=== PATIENT | female | born 1960 | race Caucasian/White ===

== ENCOUNTER 2019-06-01 15:34 | Outpatient (CLI) | payer OTHER, SELFPAY ==
--- NOTE | 2019-06-01 15:37 | ECG_ITS ---
Measurements Intervals [place] Rate: 70 P: 15 IN: 167 QRS: -34 QRSD: 93 T: 40 QT: 382 QTc: 415 Interpretive Statements SINUS RHYTHM LEFT AXIS DEVIATION LOW QRS VOLTAGE IN PRECORDIAL LEADS POOR R WAVE PROGRESSION, CONSDIER ANTERIOR INFARCT BASELINE ARTIFACT- I, II, III, AVR, AVL, AVF ABNORMAL ECG Electronically Signed On 06-01-2019 16:53:33 SHIP SURVEYOR by Isaac Mcintosh D.O.
== END 2019-06-01 15:35 | disposition home or self-care (01) ==
LOC: ANHSURGERY 15:37
PROVIDERS: PCP Physician Assistant; Visit Provider Podiatrist Foot & Ankle Surgery
DX: I10 Essential (primary) hypertension (principal)
CPT/HCPCS: 93005

== ENCOUNTER 2019-06-22 00:50 | Day surgery (SDC) | payer OTHER, SELFPAY ==
[2019-05-31 12:56] VITALS: BMI 41.9
[2019-06-22] VITALS (7 sets, daily range): BP systolic 109–137; BP diastolic 58–76; PULSE 55–73; RESP 12–17; TEMP 36.2; O2SAT 92–97
--- NOTE | ~2019-06-22 | XR_ITS ---
EXAMINATION: XR surgery orthopedic DATE: 06/22/2019 10:25 INDICATION: Left foot arthrodesis. TECHNIQUE: 2 intraoperative spot fluoroscopic views of the left foot were obtained. COMPARISON: None. FINDINGS: Bone alignment is normal. No fracture. There are changes of arthrodesis procedure of first metatarsophalangeal joint with dorsal plate and screws. There are changes of arthrodesis procedure of second proximal interphalangeal joint with single screw. No fracture. IMPRESSION: 1. Arthrodesis procedures of first metatarsophalangeal joint and second proximal interphalangeal join t. Reviewed, dictated and finalized at location A. T MAKER MACHINE IMPRESSION: 1. Arthrodesis procedures of first metatarsophalangeal joint and second proxima l interphalangeal joint.
--- NOTE | 2019-06-22 07:21 | WPDHPUPDATE1 ---
History and Physical Update Update Date/Time: 06/22/19 07:21 History and Physical has been reviewed, including an updated exam of the patient. There are NO changes in the patient's condition. Risks, benefits, and alternatives have been discussed and questions answered. Patient agrees to proceed with procedure.
[2019-06-22] MEDS: LACTATED RINGERS 1,000 ML 30 ML IV CONT ×2 (07:30→10:28)
--- NOTE | 2019-06-22 08:09 | WPDANESEPPF ---
Anes - Initial Pre Proc Eval Procedure: Operation Date: 06/22/19 09:00 Proposed Procedures p Arthrodesis First Metatarsal Phalangeal Joint Left Foot - Alfonso Durham JR, MD s Hammer Toe Repair Second Digit Left Foot - Alfonso Durham JR, MD Date/Time: 06/22/19 08:09 Surgeon: Alfonso Durham JR, MD Pre Op Diagnosis: bunion left foot, hammer toe 2nd left foot Patient Data Age: 59 Gender: F Height: 1.68 m Weight: 118.6 kg Last Vital Signs Temp 36.2 C L 06/22/19 07:41 Pulse 58 L 06/22/19 07:41 Resp 16 06/22/19 07:41 BP 135/70 06/22/19 07:41 Pulse Ox 97 06/22/19 07:41 Allergies Allergy/AdvReac Type Severity Reaction Status Date / Time adhesive tape Allergy Severe WINTER SKIN Verified 06/22/19 07:15 Home Medications Medication Instructions Recorded Confirmed Type cranberry fruit concentrate [Azo 250 mg PO DAILY 05/31/19 06/22/19 History Cranberry] diclofenac sodium 75 mg PO DAILY 05/31/19 06/22/19 History hydrochlorothiazide 25 mg PO DAILY 05/31/19 06/22/19 History losartan 100 mg PO DAILY 05/31/19 06/22/19 History multivitamin 1 tablet PO DAILY 05/31/19 06/22/19 History albuterol sulfate [ProAir HFA] 2 puff INHALATION Q4-6H PRN 06/18/19 06/22/19 History carvedilol 12.5 mg PO BID 06/18/19 06/22/19 History glycopyrrolate-formoterol [Bevespi 2 puff INHALATION BID 06/18/19 06/22/19 History Aerosphere] rosuvastatin 40 mg PO DAILY 06/18/19 06/22/19 History cholecalciferol (vitamin D3) 2,000 unit PO DAILY 06/22/19 06/22/19 History [Vitamin D3] ECG: Date of Service: 06/01/19 Procedure(s): CA 12 lead EKG Accession Number(s): [id number] cc: ~ Measurements Intervals [place] Rate: 70 P: 15 [place]: 167 QRS: -34 QRSD: 93 T: 40 QT: 382 QTc: 415 Interpretive Statements SINUS RHYTHM LEFT AXIS DEVIATION LOW QRS VOLTAGE IN PRECORDIAL LEADS POOR R WAVE PROGRESSION, CONSDIER ANTERIOR INFARCT BASELINE ARTIFACT- I, II, III, AVR, AVL, AVF ABNORMAL ECG Electronically Signed On 06-01-2019 16:53:33 POULTRY HATCHERY SUPERVISOR by Isaac Mcintosh D.O. Dictated By: Isaac Mcintosh DO 06/01/19 1622 Patient hx anesthesia problems: other (REPORTS WAKING DURING SURGERY FEELING IF SHE WAS DROWNING) Family hx anesthesia problems: none [facility] Past Medical History Medical History (Updated 06/22/19 @ 08:13 by David Pena MD) Arthritis COPD (chronic obstructive pulmonary disease) Emphysema of lung Endometriosis HTN (hypertension) Hypercholesterolemia Morbid obesity with BMI of 40.0-44.9, adult Anes - Eval Final PreProcedure Day of Procedure 06/22/19 08:09 Patient weight: morbidly obese Heart: regular rate and rhythm Lungs: clear to auscultation and normal air movement Airway: Mallampati scale class II Neurological: alert and oriented Last oral intake: >/= 8 hours ASA classification: III Emergent: no Anesthetic plan: proceed Anesthesia type and monitoring: general LMA Informed Consent: The patient's anesthetic plan and its attendant risks and benefits were discussed with the patient/family/POA. Questions were solicited and answers provided to the satisfaction of the patient/family/POA.
[2019-06-22] MEDS: ceFAZolin 2 GM/D5W 50 ML 2 GM/50 ML BAG IVPB (08:36)
--- NOTE | 2019-06-22 08:38 | WPDANESPNB ---
Anes - Peripheral Nerve Block Date/Time: 06/22/19 08:38 I have discussed with the patient/family/POA the placement of a peripheral nerve block for post-operative pain management, including associated risks, benefits, complications, and side effects. Alternative methods of post-operative analgesia were detailed. Questions were solicited and answers provided to the satisfaction of the patient/family/POA. Time-Out: A pre-procedural Time-Out was completed immediately before starting the procedure and confirmed: Patient Identification, Site, Procedure, Patient Position and the Availability of Requisite Equipment. Clinical Indications: Acute post-operative pain management requested by the operative surgeon. Nerve Block Insertion Note Anes-nerve block: posterior fossa sciatic (20cc) left and adductor canal (10cc) left Patient position: supine Skin prep: chlorhexidine Needle: 22 gauge, stimulating, insulated echogenic needle. Needle length: 80 mm Technique: ultrasound (in plane) Injectate: bupivacaine 0.5% with epi 5 mcg/ml (20cc) Observations: tolerated well Complications: none Procedure start time:: 830 Procedure end time:: 835
--- NOTE | 2019-06-22 10:39 | PM.OP ---
Procedure Note - Brief Procedure Note - Brief Date of procedure: 06/22/19 Pre-op diagnosis: bunion left foot, hammer toe 2nd left foot Post-op diagnosis: same Procedure performed: 1. Arthrodesis of the first metatarsal phalangeal joint left foot 2. Hammertoe repair 2nd digit left foot Anesthesia: GLMA Surgeon: Alfonso Durham JR, DPM Estimated blood loss (mL): 1 Complications: No immediate complications Condition: stable Disposition: same day
--- NOTE | 2019-06-22 17:28 | OP_ITS ---
DATE OF PROCEDURE: 06/22/2019 PREOPERATIVE DIAGNOSES: 1. Arthritic bunion deformity, left foot. 2. Painful hammertoe deformity, left second digit. POSTOPERATIVE DIAGNOSES: 1. Arthritic bunion deformity, left foot. 2. Painful hammertoe deformity, left second digit. PROCEDURE: 1. Arthrodesis of the 1st metatarsophalangeal joint of the left foot. 2. Hammertoe repair, 2nd digit, left foot. 3. Extensor tendon release, 2nd digit, left foot. PATHOLOGY: None. ANESTHESIA: General with previous popliteal fossa block. HEMOSTASIS: Pneumatic ankle tourniquet at 250 mmHg. ESTIMATED BLOOD LOSS: Minimal. MATERIALS USED: 1 [employer] Crosscheck plate with four 2.7 mm with 4 [employer] Crosscheck plate screws, 3 of them were 2.7 mm and one was a 3.5 mm nonlocking locking, one lag screw, 3.5 mm was also used along with a medium [employer] hammertoe phalanx system, 3-0 PDS, 4-0 Vicryl and 4-0 Monocryl. INJECTABLES: None. COMPLICATIONS: None. PROCEDURE IN DETAIL: Under mild sedation, the patient was brought to the operating room, placed on the operating table in the supine position. A pneumatic ankle tourniquet was placed about the patient's left ankle. Following general anesthesia and a previous popliteal fossa block, the left foot and ankle were then scrubbed, prepped, and draped in the usual aseptic manner. Next, an Esmarch bandage was used to examine the patient's left foot and the pneumatic ankle tourniquet was then inflated. Surgery began in the following manner. Attention was directed to the dorsal aspect of 1st metatarsophalangeal joint of the left foot just medial to the extensor hallucis longus tendon. The incision was approximately 5 cm starting just proximal to the interphalangeal joint and extending to the central shaft of the 1st metatarsal. Incision was continued deep down through subcutaneous tissues using sharp and blunt dissection. All bleeders were ligated and cauterized as necessary. At this point, a full length periosteal and capsular incision was made over the 1st metatarsophalangeal joint of the left foot. The periosteum and capsular structures were then freed of their osseous attachments at the base of the proximal phalanx as well as the head of the 1st metatarsal. At this point, there was significant denudation noted to the cartilage to the 1st metatarsal head, especially centrally and medially. Furthermore, there were significant joint space narrowing to the base of the proximal phalanx with sclerosis noted with hypertrophy at the base of the proximal phalanx noted. Furthermore, there was a large medial eminence that was resected. Those resected utilizing a sagittal bone saw. Next, utilizing the [employer] reamer system, the head of the 1st metatarsal head was denuded of cartilage down to the level of the subchondral bone. Next, the [employer] reamer system was used to denude the cartilage from the base of the proximal phalanx. Next, 2.0 mm drill bit was used to fenestrate the head of the 1st metatarsal base of the proximal phalanx in order to promote fusion across the 1st metatarsophalangeal joint. Next, a [employer] crosscheck plate was placed across the dorsum of the 1st metatarsophalangeal joint. AP was used to make sure that the plate was appropriately positioned. A large middle lid was used to make sure that the hallux was in a rectus position in the sagittal plane, and then it was purchasing the ground adequately. Temporary fixation was maintained with K-wire fixation across the 1st metatarsophalangeal joint. Once temporary fixation was achieved, the 2 distal screw holes were drilled from dorsal to plantar and two 2.7 mm [employer] Crosscheck plate screws that were locking were driven from dorsal to plantar. Nex
== END 2019-06-22 12:15 | disposition home or self-care (01) ==
PROVIDERS: PCP Physician Assistant; Visit Provider Podiatrist Foot & Ankle Surgery
PROC: (CPT 28750; principal; 2019-06-22 09:00)
PROC: (CPT 28750; 2019-06-22 09:00)
DX: M21.612 Bunion of left foot (principal); M13.872 Other specified arthritis, left ankle and foot; M20.42 Other hammer toe(s) (acquired), left foot; G89.18 Other acute postprocedural pain; J43.9 Emphysema, unspecified; I10 Essential (primary) hypertension; E78.00 Pure hypercholesterolemia, unspecified; E66.01 Morbid (severe) obesity due to excess calories; Z68.41 Body mass index [BMI] 40.0-44.9, adult
CPT/HCPCS: 28750; 28285; 64445; 64447; A9270; C1713; J0690; J1100; J2250; J2405; J2704; J3010; J7120

== ENCOUNTER 2020-06-06 15:00 | Outpatient (CLI) | payer BC, OTHER, SELFPAY ==
--- NOTE | ~2020-06-06 | MM_ITS ---
EXAMINATION: MM screening [facility] BI w gianni HISTORY: Screening mammogram TECHNIQUE: Craniocaudal and mediolateral oblique 3-D tomosynthesis images were obtained and synthetic 2-D images were generated. CAD analysis was submitted and interpreted. COMPARISON: 03/03/2016, 11/02/2014, 05/11/2013 bilateral digital screening mammogram examinations BREAST PARENCHYMAL COMPOSITION: There are scattered areas of fibroglandular density. FINDINGS: There are scattered benign calcifications. Stable low-density circumscribed 1 cm opacity noted anterolaterally in the right breast on cc view. There is no evidence of suspicious mass, calcification, or architectural distortion to suggest malign callie in either breast. There has been no suspicious interval change. IMPRESSION: 1. No mammographic evidence of malignancy. 2. Recommend routine screening mammography in one year. BI-RADS Category 2: Benign finding(s). Reviewed, dictated and finalized at location A. L NUMERICAL CONTROL PROGRAMMER
== END 2020-06-06 15:01 | disposition home or self-care (01) ==
LOC: ANHIMG 15:05
PROVIDERS: PCP Physician Assistant; Visit Provider Physician Assistant
DX: Z12.31 Encounter for screening mammogram for malignant neoplasm of breast (principal)
CPT/HCPCS: 77063; 77067

== ENCOUNTER 2021-07-08 09:40 | Outpatient (CLI) | payer BC, OTHER, SELFPAY ==
--- NOTE | ~2021-07-08 | MM_ITS ---
EXAMINATION: MM screening [facility] BI w gianni HISTORY: Screening mammogram TECHNIQUE: Craniocaudal and mediolateral oblique 3-D tomosynthesis images were obtained and synthetic 2-D images were generated. CAD analysis was submitted and interpreted. COMPARISON: 06/06/2020, 03/03/2016, 11/02/2014 BREAST PARENCHYMAL COMPOSITION: There are scattered areas of fibroglandular density. FINDINGS: There is no suspicious mass, calcification, or architectural distortion to suggest malignan cy in either breast. There has been no suspicious interval change. IMPRESSION: 1. No mammographic evidence of malignancy. 2. Recommend routine screening mammography in one year. BI-RADS Category 1: Negative Reviewed, dictated and finalized at location A.
== END 2021-07-08 09:41 | disposition home or self-care (01) ==
LOC: ANHIMG 09:42
PROVIDERS: PCP Physician Assistant; Visit Provider Physician Assistant
DX: Z12.31 Encounter for screening mammogram for malignant neoplasm of breast (principal)
CPT/HCPCS: 77063; 77067

== ENCOUNTER 2022-05-28 13:23 | Emergency (ER) | payer OTHER, SELFPAY ==
--- NOTE | ~2022-05-28 | XR_ITS ---
EXAMINATION: XR foot RT 2V DATE: 05/28/2022 15:33 INDICATION: Right foot foreign body. TECHNIQUE: 2 views of right foot were obtained. COMPARISON: None. FINDINGS: There are changes of bunionectomy with screw in first metatarsal. There are changes of rese ction of head of fifth proximal phalanx and possibly fifth middle phalanx. There is mild osteoarthrit is of some of the interphalangeal joints. There is an enthesophyte at plantar aspect of calcaneal tub erosity. IMPRESSION: 1. Bunionectomy with screw fixation of first metatarsal. 2. Mild polyarticular osteoarthritis. Reviewed, dictated and finalized at location A. VISION CABLE INSTALLER
[2022-05-28 13:26] VITALS: BP 208/75; PULSE 62; RESP 18; TEMP 36.7; O2SAT 98
--- NOTE | 2022-05-28 15:21 | ED.WOUNDLAC ---
HPI - Wound/Laceration General Chief Complaint: Wound/Laceration Stated Complaint: toe laceration Time Seen by Provider: 05/28/22 15:11 History of Present Illness HPI narrative: 62-year-old female reports for left great toe laceration that occurred 19 hours ago. Patient states she was opening her fridge and the shelf fell off landing on her foot along with all of the jars on the shelf. Patient takes a daily baby aspirin but held her dose today to stop the bleeding. She had her daughter closed the toe with Steri-Strips which controlled the bleeding. She thinks her tetanus was in the past 10 years but she is unsure. She is ambulating on her foot. Denies pain elsewhere on her foot. Related Data Home Medications Medication Instructions Recorded Confirmed cranberry fruit concentrate 250 mg 250 mg PO DAILY 05/31/19 06/22/19 chewable tablet (Azo Cranberry) diclofenac sodium 75 mg 75 mg PO DAILY 05/31/19 06/22/19 tablet,delayed release hydrochlorothiazide 25 mg tablet 25 mg PO DAILY 05/31/19 06/22/19 losartan 100 mg tablet 100 mg PO DAILY 05/31/19 06/22/19 multivitamin 1 tablet PO DAILY 05/31/19 06/22/19 albuterol sulfate 90 mcg/actuation 2 puff inhalation Q4-6H PRN 06/18/19 06/22/19 aerosol inhaler (ProAir HFA) Shortness Of Breath carvedilol 12.5 mg tablet 12.5 mg PO BID 06/18/19 06/22/19 glycopyrrolate 9 mcg-formoterol 2 puff inhalation BID 06/18/19 06/22/19 4.8 mcg HFA aerosol inhaler (Bevespi Aerosphere) rosuvastatin 40 mg tablet 40 mg PO DAILY 06/18/19 06/22/19 cholecalciferol (vitamin D3) 50 2,000 unit PO DAILY 06/22/19 06/22/19 mcg (2,000 unit) capsule (Vitamin D3) Allergies Allergy/AdvReac Type Severity Reaction Status Date / Time adhesive tape Allergy Severe WINTER SKIN Verified 06/22/19 07:15 Review of Systems Review of Systems: CONSTITUTIONAL: Denies fever, chills EYES: Denies visual changes, redness, or discharge. ENT: Denies rhinorrhea, congestion, sore throat, or otalgia. CARDIOVASCULAR: Denies chest pain, palpitations, or edema. RESPIRATORY: Denies cough or dyspnea. GASTROINTESTINAL: Denies abdominal pain, nausea, vomiting, or diarrhea. GENITOURINARY: Denies dysuria or hematuria. SKIN: See HPI MUSCULOSKELETAL: Denies back pain, joint pain, or myalgia. NEUROLOGIC: Denies headache, numbness, dizziness, or weakness. PSYCHIATRIC: Denies anxiety or depression. [facility] Past Medical History Medical History Arthritis COPD (chronic obstructive pulmonary disease) Emphysema of lung Endometriosis HTN (hypertension) Hypercholesterolemia Morbid obesity with BMI of 40.0-44.9, adult Exam Narrative: GENERAL: Well-appearing, well-nourished, and in no acute distress. HEAD: Normocephalic, atraumatic. EYES: PERRLA and EOMI. ENT: Nares clear, no rhinorrhea or epistaxis. NECK: Supple. No adenopathy or masses. CHEST: Clear to auscultation. No respiratory distress. No wheezes rales or rhonchi HEART: Regular rate and rhythm. No murmur heard. Normal peripheral pulses. ABDOMEN: Soft, nontender, nondistended, normal active bowel sounds. EXTREMITIES: Normal range of motion. No edema. SKIN: 2 cm laceration on the dorsum of the left great toe, does not extend into the proximal nail fold. No purulent drainage. No fluctuance or induration. DP pulses 2+. Cap refill less than 2 seconds. Tenderness overlying the left great toe. No other tenderness to palpation of the left foot. NEURO: No focal deficits. Alert and oriented x3. PSYCH: Normal mood and affect. Course Vital Signs Vital signs: Vital Signs Temperature 98.1 F 05/28/22 13:26 Pulse Rate 62 05/28/22 13:26 Respiratory Rate 18 05/28/22 13:26 Blood Pressure 208/75 H 05/28/22 13:26 Pulse Oximetry 98 05/28/22 13:26 Oxygen Delivery Room Air 05/28/22 13:26 Temperature 98.1 F 05/28/22 13:26 Pulse Rate 62 05/28/22 13:26 Respiratory Rate 18 05/28/22 13:26 Blood Pressu
[2022-05-28] MEDS: TETANUS,DIPHTHERIA,AC PERTUSSIS ADULT (0.5 ML) BOOSTRIX IM (15:58)
[2022-05-28] MEDS: LIDOCAINE HCL 1% LOCAL INJ 20 ML VIAL (16:29)
[2022-05-28 17:26] VITALS: BP 155/77
== END 2022-05-28 17:47 | disposition home or self-care (01) ==
PROVIDERS: Emergency Provider Physician Assistant; PCP Physician Assistant
DX: S91.111A Laceration without foreign body of right great toe without damage to nail, initial encounter (principal); Z23 Encounter for immunization; J43.9 Emphysema, unspecified; I10 Essential (primary) hypertension; N80.9 Endometriosis, unspecified; E78.00 Pure hypercholesterolemia, unspecified; M19.071 Primary osteoarthritis, right ankle and foot; E66.01 Morbid (severe) obesity due to excess calories; Z68.38 Body mass index [BMI] 38.0-38.9, adult; W20.8XXA Other cause of strike by thrown, projected or falling object, initial encounter
CPT/HCPCS: 12001; 73620; 90471; 90715; 99283

== ENCOUNTER 2022-06-12 08:43 | Inpatient (IN) | payer OTHER, SELFPAY ==
[2022-06-12] VITALS (15 sets, daily range): BP systolic 128–164; BP diastolic 60–89; PULSE 66–82; RESP 13–22; TEMP 36.6–37.5; O2SAT 87–98; BMI 38.7
--- NOTE | ~2022-06-12 | XR_ITS ---
EXAMINATION: XR chest 2V 06/15/2022 09:30 INDICATION: Pneumonia PROCEDURE: 2 view chest COMPARISON: 06/12/2022 FINDINGS: Bibasilar airspace disease may represent atelectasis or developing pneumonia. The cardiomed iastinal silhouette is within normal limits. There are no pleural effusions. There is no pneumothor ax suspected. IMPRESSION: 1: Interval development of bibasilar airspace disease, atelectasis versus pneumonia. Reviewed, dictated and finalized at location L. AD MARKER IMPRESSION: 1: Interval development of bibasilar airspace disease, atelectasis versus pneu monia.
--- NOTE | ~2022-06-12 | US_ITS ---
EXAMINATION:US venous doppler LE BI INDICATION:Elevated d-dimer TECHNIQUE: Multiple grayscale, color flow and Doppler images of the right and left lower extremity de ep venous systems were obtained and reviewed. COMPARISON:02/07/2014 FINDINGS: The common femoral, superficial femoral and popliteal veins demonstrate normal respiratory variation, augmentation and compressibility. Color flow is also seen within the posterior tibial, pe roneal, greater saphenous and profunda veins. IMPRESSION: 1: No lower extremity deep venous thrombosis. Reviewed, dictated and finalized at location A. ING SUPERVISOR
--- NOTE | ~2022-06-12 | CT_ITS ---
EXAMINATION: CTA chest PE abdomen pel DATE: 06/12/2022 12:02 HARDWOOD FINISHER INDICATION: Cough, shortness of breath, hypoxia and nausea and vomiting. TECHNIQUE: Computed tomographic angiography (CTA) of the chest, abdomen, and pelvis was performed wit hout and with 100 mL Omnipaque-350 intravenous contrast. The dose-length product was 2266.38 mGy-cm. Maximum intensity projection 3D-reconstructions of the aorta and other arteries were constructed by jeet mauricio technologist on a separate workstation. Automated exposure control and iterative reconstruction te beatriz were employed. COMPARISON: CT dated 05/09/2011. FINDINGS: CHEST CTA: There is mediastinal lymphadenopathy, likely reactive. Small pericardial effusion. No significant ple ural effusion. Heart size normal. Study somewhat limited by motion artifact. No large central pulmona ry embolism. There is emphysema. There is patchy groundglass opacification in both lungs, consistent with pneumonia. No endobronchial lesions. No pneumothorax. No evidence for aortic aneurysm or dissect ion. There is mild thoracic and lumbar spondylosis. ABDOMEN AND PELVIS CTA: The liver, pancreas, adrenal glands and kidneys are unremarkable. Small hiatal hernia. Nonobstructive bowel pattern. Colonic diverticulosis without evidence for diverticulitis. Normal appendix. There ar e are changes of previous ventral hernia repair. No abnormal pelvic masses or fluid collections. Ther e is a fat-containing right inguinal hernia. IMPRESSION: 1. Patchy groundglass opacities bilaterally, consistent with pneumonia. 2: No large central pulmonary embolism. Evaluation of the peripheral pulmonary arteries limited by m otion. 3: Small pericardial effusion. 4: Mild mediastinal lymphadenopathy, likely reactive. Reviewed, dictated and finalized at location A. WOOD FINISHER IMPRESSION: 1. Patchy groundglass opacities bilaterally, consistent with pneumonia. 2: No large central pulmonary embolism. Evaluation of the peripheral pulmonary arteries limited by motion. 3: Small pericardial effusion. 4: Mild mediastinal lymphadenopathy, likely reactive.
--- NOTE | ~2022-06-12 | XR_ITS ---
EXAMINATION: XR chest 2V 06/12/2022 09:35 INDICATION: Fever and cough PROCEDURE: 2 view chest COMPARISON: 05/09/2011 FINDINGS: There is left basilar atelectasis. No focal pneumonia, edema. The cardiomediastinal silhoue tte is within normal limits. There are no pleural effusions. There is no pneumothorax suspected. IMPRESSION: 1: Left basilar atelectasis. Reviewed, dictated and finalized at location A. OMER SUPPORT ANALYST
--- NOTE | 2022-06-12 09:08 | ECG_ITS ---
Measurements Intervals [place] Rate: 69 P: 5 NE: 159 QRS: -36 QRSD: 92 T: 45 QT: 388 QTc: 418 Interpretive Statements SINUS RHYTHM LEFT AXIS DEVIATION LOW-VOLTAGE QRS BORDERLINE ECG COMPARED TO ECG 06/01/2019 16:22:06 NO SIGNIFICANT CHANGES Electronically Signed On 06-12-2022 16:46:23 ROTOR PLATE WASHER by Guzman Blanco M.D.
--- NOTE | 2022-06-12 09:10 | ED.FEVER ---
HPI - Fever General Chief Complaint: Fever Stated Complaint: SOB, Cough x1 week Time Seen by Provider: 06/12/22 08:55 Source: patient Mode of arrival: ambulatory Limitations: no limitations History of Present Illness HPI Narrative: Patient is a 62 y/o female who presents to the ED with c/o fever, cough, nausea. Patient reports having a cough, occasionally productive, for the last 1 week. She also reports having congestion, rhinorrhea. She has had intermittent fevers, up to 101 ?F, since . Last took Tylenol this morning. She does note her daughter has been sick with similar symptoms. Patient is vaccinated for COVID and flu. Today, patient noticed wheezing and mild difficulty breathing, which prompted her presentation. She denies any CP or pleuritic pain. Patient reports she was diagnosed with COPD years ago and had an inhaler at that time, but has not required this in many years. She did have an episode of nausea and vomiting in the ED waiting room, but denies nausea currently. Denies abdominal pain. Related Data Home Medications Medication Instructions Recorded Confirmed cranberry fruit concentrate 250 mg 250 mg PO DAILY 05/31/19 06/12/22 chewable tablet (Azo Cranberry) hydrochlorothiazide 25 mg tablet 25 mg PO DAILY 05/31/19 06/12/22 losartan 100 mg tablet 100 mg PO DAILY 05/31/19 06/12/22 multivitamin 1 tablet PO DAILY 05/31/19 06/12/22 carvedilol 12.5 mg tablet 12.5 mg PO BID 06/18/19 06/12/22 rosuvastatin 40 mg tablet 40 mg PO DAILY 06/18/19 06/12/22 cholecalciferol (vitamin D3) 50 2,000 unit PO DAILY 06/22/19 06/12/22 mcg (2,000 unit) capsule (Vitamin D3) cranberry 1,000 mg capsule 1,000 mg PO TID 06/12/22 06/12/22 escitalopram oxalate 10 mg tablet 10 mg PO DAILY 06/12/22 06/12/22 psyllium husk 0.52 gram capsule 56 g PO DAILY 06/12/22 06/12/22 (Fiber (psyllium husk)) Allergies Allergy/AdvReac Type Severity Reaction Status Date / Time adhesive tape Allergy Severe WINTER SKIN Verified 06/22/19 07:15 Review of Systems Review of Systems: CONSTITUTIONAL: See HPI. ENT: See HPI. CARDIOVASCULAR: Denies chest pain, palpitations, or edema. RESPIRATORY: See HPI. GASTROINTESTINAL: See HPI. GENITOURINARY: Denies dysuria or hematuria. All systems reviewed & are unremarkable except as noted in HPI and below PMFSH Past Medical History Medical History (Updated 06/12/22 @ 14:53 by Lala Pavon NP) Anxiety Arthritis COPD (chronic obstructive pulmonary disease) Emphysema of lung Endometriosis HTN (hypertension) Hypercholesterolemia Morbid obesity with BMI of 40.0-44.9, adult Surgical History Surgical History (Updated 06/12/22 @ 15:03 by Lala Pavon NP) H/O abdominoplasty H/O cervical polypectomy H/O dilation and curettage H/O hernia repair H/O tubal ligation H/O: hysterectomy History of bunionectomy Family History Family History Mother Hypertension Father Hypertension Fibromyalgia Neuropathy Heart disease Sibling Lung disease Social History Social History (Updated 06/12/22 @ 14:54 by Lala Pavon NP) Social History: she lives with who had a stroke. 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 She is a former smoker. Her poa is her . She has 8 children between her and her which include biological , adoption and step children. She gave to 2 children. code status full code Does not want to live a vegetative state. Smoking packs per day: 1 Smoking cigarettes per day: 20.0 Years smoked: 37 Smoking pack-years: 37.00 Smoking status: Former smoker Tobacco type: cigarettes Second hand tobacco smoke exposure: Yes Alcohol intake: current Drinks per week: 7 Substance use: never Substance use type: does not use Other substance usage details: Glass of red wime before bedtime Last u
[2022-06-12 09:23] LABS: Basophils Percent Auto 0.5 % (0.2-1.2); Eosinophils Absolute Auto 0.1 K/mm3 (0-0.3); Eosinophils Percent Auto 2.7 % (0-4.4); Hematocrit 44.8 % (37.0-47.0); Hemoglobin 14.7 g/dL (12.0-15.0); Immature Granulocyte Absolute 0.01 K/mm3 (0.00-0.031); Immature Granulocyte Percent A 0.2 % (0-0.5); Lymphocytes Percent Auto 11.4 % (18.3-44.2); Mean Corpuscular HGB Conc 32.8 g/dl (32-36); Mean Corpuscular Hemoglobin 29.5 pg (26-34); Mean Platelet Volume 11.3 fl (7.4-10.4); Monocytes Absolute Auto 0.2 K/mm3 (0.1-0.6); Monocytes Percent Auto 5.3 % (2.6-8.5); Neutrophils Absolute Auto 3.5 K/mm3 (1.3-6.7); Neutrophils Percent Auto 79.9 % (45.5-73.1); Platelet Count Result 164 k/mm3 (150-375); Red Blood Count 4.98 M/mm3 (4.2-5.4); Red Cell Distribution Width 12.9 % (11.5-14.5); White Blood Count 4.4 K/mm3 (4.5-10.0)
[2022-06-12 09:36] LABS: Lipase 82 U/L (23-300)
[2022-06-12 09:37] LABS: Alanine Aminotransferase 35 U/L (6-35); Albumin Level 4.5 g/dL (3.5-5.1); Alkaline Phosphatase 75 U/L (38-126); Anion Gap 7 mmol/L (8-16); Aspartate Amino Transferase 44 U/L (14-36); Bilirubin,Total 0.5 mg/dL (0.2-1.3); Blood Urea Nitrogen 16 mg/dL (7-17); Calcium 8.4 mg/dL (8.4-10.2); Carbon Dioxide 24 mmol/L (22-30); Chloride 103 mmol/L (98-107); Estimated CRCL calculation 122 ml/min; Estimated Glomerular Filt Rate > 60; Glucose 135 mg/dL (65-110); Potassium 3.8 mmol/L (3.4-5.0); Sodium 134 mmol/L (137-145)
[2022-06-12] MEDS: IPRATROPIUM BR 0.02% INH SOLN 0.5 MG/2.5 ML VIAL INHALATION ×2 (09:54→21:18)
[2022-06-12 09:58] LABS: Influenza A QL RT-PCR Negative (Negative); Influenza B QL RT-PCR Negative (Negative); SARS-CoV-2 RNA PCR Negative
[2022-06-12] MEDS: ONDANSETRON INJ 4 MG/2 ML VIAL IV PUSH ×2 (10:32→20:10)
--- NOTE | 2022-06-12 10:32 | PC.NURSE ---
Pt 02 was 87% on room air, placed on 2 L NC O2 and increased sat to 96%. Pt denies home O2 use.
[2022-06-12 10:53] LABS: D Dimer 0.72 ug/mL (<0.48)
[2022-06-12 11:51] LABS: Troponin I < 0.012 ng/mL (0.000-0.034)
--- NOTE | 2022-06-12 12:44 | PM.IMHP ---
H&P: HPI History of Present Illness Date/Time: 06/12/22 12:44 Chief Complaint: Shortness of breath with fever Narrative: This is a 62-year-old female patient who has a history of COPD of though she states she has not been using any inhalers. The patient came to the emergency room with complaint of fever, cough and nausea. The patient has had a productive cough for at least a week now. She has also had some nasal congestion and runny nose as well. T-max 101? since . She took some Tylenol this morning. The patient noticed that she was wheezing and having difficulty breathing. The patient is not on home oxygen. She denied any chest pain. The patient stated was diagnosed with COPD many years ago and had inhalers at that time but has not used them since. Chest x-ray was read as left basilar atelectasis. Chest abdomen and pelvis CTA was read as the following. Patchy groundglass opacities bilaterally, consistent with pneumonia. 2:? No large central pulmonary embolism. Evaluation of the peripheral pulmonary arteries limited by motion. 3: Small pericardial effusion. 4: Mild mediastinal lymphadenopathy, likely reactive The patient was started on nebulizer treatment, Zofran azithromycin and Rocephin as per community-acquired pneumonia protocol. Her white count was low at 4.4. D-dimer was noted to be 0.72. Sodium 134. She is negative for influenza A/B and COVID. The patient's initial pulse ox was 87% on room air and she was placed on 2 L per nasal cannula. She then came up to 98% on the 2 L. the patient is being admitted to observation status on the date of service of 06/12/2022. Review of Systems Review of Systems: See HPI All systems reviewed & are unremarkable except as noted in HPI and below Constitutional: Constitutional: Reports as per HPI and Reports no additional constitutional complaints Eyes: Eyes: Reports as per HPI and Reports no additional eye complaints ENT: Reports system reviewed and no additional complaints, except as documented and Reports Normal hearing present Cardiovascular: Cardiovascular: Reports no additional cardiovascular complaints Respiratory: Respiratory: Reports no additional respiratory complaints and Reports no additional respiratory complaints Gastrointestinal: Gastrointestinal: Reports as per HPI and Reports no additional gastrointestinal complaints Musculoskeletal: Musculoskeletal: Reports no additional musculoskeletal complaints Integumentary/Breasts: Skin/Breast: Reports system reviewed and no additional complaints, except as docu and Reports as per HPI Neurologic: Reports system reviewed and no additional complaints, except as documented, Reports as per HPI and Reports Normal hearing present Psychiatric: Psychiatric: Reports no additional psychiatric complaints and Reports as per HPI Endocrine: Endocrine: Reports no additional endocrine complaints Hematologic/Lymphatic: Hematologic/Lymphatic: Reports no additional hematologic/lymphatic complaints Allergic/Immunologic: Allergic/Immunologic: Reports no additional allergic/immunologic complaints [facility] Past Medical History Medical History (Updated 06/12/22 @ 14:53 by Lala Pavon NP) Anxiety Arthritis COPD (chronic obstructive pulmonary disease) Emphysema of lung Endometriosis HTN (hypertension) Hypercholesterolemia Morbid obesity with BMI of 40.0-44.9, adult Surgical History Surgical History (Updated 06/12/22 @ 15:03 by Lala Pavon NP) H/O abdominoplasty H/O cervical polypectomy H/O dilation and curettage H/O hernia repair H/O tubal ligation H/O: hysterectomy History of bunionectomy Family History Family History Mother Hypertension Father Hypertension Fibromyalgia Neuropathy Heart disease Sibling Lung disease Social History Social History (Updated 06/12/22 @ 14:54 by Lala Pavon NP) Social History: she lives with who had a st
--- NOTE | 2022-06-12 13:24 | PC.NURSE ---
Lunch tray ordered for pt at this time, requested dietary sent to pts room 316.
--- NOTE | 2022-06-12 14:05 | ADMGEN ---
This patient, Dayanara Chao, was admitted to 3 [facility] Surg Room 316-01 @ 1405. Patient/family oriented to hospital policies and general routines including ID bracelet, bed and alarms, visiting hours, pain management, procedures, bathroom and other care routines, personal items, smoking policy, room service/diet, and visiting hours. Information on how to activate the Rapid Response Team has been discussed. Patient/Family are encouraged to report perceived risks to care and to ask questions if they do not understand what they are told or what they should do.
[2022-06-12] MEDS: carvediloL 12.5 MG TABLET PO (18:00)
[2022-06-12] MEDS: guaiFENesin 12 HR 600 MG TABCR 1200 MG PO (20:10)
[2022-06-13] VITALS (13 sets, daily range): BP systolic 122–143; BP diastolic 67–72; PULSE 60–70; RESP 17–19; TEMP 36.3–36.8; O2SAT 91–99
[2022-06-13] MEDS: guaiFENesin 600 MG/DEXTROMETHORPHAN 30 MG SR TAB 12 HR 1 TAB PO ×2 (06:02→21:04)
[2022-06-13 06:14] LABS: Basophils Percent Auto 0.3 % (0.2-1.2); Eosinophils Percent Auto 1.3 % (0-4.4); Hematocrit 39.7 % (37.0-47.0); Hemoglobin 13.1 g/dL (12.0-15.0); Lymphocytes Absolute Auto 0.91 K/mm3 (0.9-3.2); Lymphocytes Percent Auto 29.8 % (18.3-44.2); Mean Corpuscular Hemoglobin 29.2 pg (26-34); Mean Corpuscular Volume 88.4 fl (80-100); Mean Platelet Volume 11.3 fl (7.4-10.4); Monocytes Absolute Auto 0.2 K/mm3 (0.1-0.6); Monocytes Percent Auto 7.9 % (2.6-8.5); Neutrophils Absolute Auto 1.9 K/mm3 (1.3-6.7); Neutrophils Percent Auto 60.7 % (45.5-73.1); Platelet Count Result 147 k/mm3 (150-375); Red Blood Count 4.49 M/mm3 (4.2-5.4); Red Cell Distribution Width 12.9 % (11.5-14.5); White Blood Count 3.1 K/mm3 (4.5-10.0)
[2022-06-13 06:32] LABS: Lactic Acid Reflex 0.6 mmol/L (0.7-2.0)
[2022-06-13 06:38] LABS: Alanine Aminotransferase 29 U/L (6-35); Albumin Level 3.7 g/dL (3.5-5.1); Alkaline Phosphatase 55 U/L (38-126); Anion Gap 3 mmol/L (8-16); Aspartate Amino Transferase 33 U/L (14-36); Bilirubin,Total 0.4 mg/dL (0.2-1.3); Blood Urea Nitrogen 16 mg/dL (7-17); Calcium 8.1 mg/dL (8.4-10.2); Carbon Dioxide 28 mmol/L (22-30); Chloride 103 mmol/L (98-107); Estimated CRCL calculation 103 ml/min; Estimated Glomerular Filt Rate > 60; Glucose 109 mg/dL (65-110); Magnesium 2.2 mg/dL (1.6-2.3); Potassium 3.3 mmol/L (3.4-5.0); Sodium 134 mmol/L (137-145)
[2022-06-13 07:22] LABS: Thyroid Stimulating Hormone Reflex 0.734 uIU/mL (0.465-4.68)
[2022-06-13] MEDS: IPRATROPIUM BR 0.02% INH SOLN 0.5 MG/2.5 ML VIAL INHALATION ×3 (09:10→20:46)
[2022-06-13] MEDS: POTASSIUM CHLORIDE 20 MEQ TABLET 40 MEQ PO (09:30)
[2022-06-13] MEDS: MULTIVITAMINS THERAPEUTIC TAB (*BKC) 1 TABLET PO (09:31)
[2022-06-13] MEDS: ROSUVASTATIN 10 MG TABLET 40 MG PO (09:32)
[2022-06-13] MEDS: CHOLECALCIFEROL 1,000 UNITS TABLET 2000 UNITS PO (09:34)
[2022-06-13] MEDS: carvediloL 12.5 MG TABLET PO ×2 (09:35→16:04)
[2022-06-13] MEDS: cefTRIAXone 2 GM in SODIUM CHLORIDE 0.9% IV 100 ML 200 ML IVPB (09:36)
[2022-06-13] MEDS: ESCITALOPRAM OXALATE 10 MG TABLET PO (09:36)
[2022-06-13] MEDS: ENOXAPARIN 40 MG/0.4 ML SYRINGE SUB-Q (09:36)
[2022-06-13] MEDS: LOSARTAN POTASSIUM 100 MG TABLET PO (09:37)
[2022-06-13] MEDS: hydroCHLOROthiazide 25 MG TABLET PO (09:37)
[2022-06-13] MEDS: BENZONATATE 100 MG CAPSULE 200 MG PO ×2 (09:38→16:06)
[2022-06-13] MEDS: methylPREDNISolone SOD SUCC 125 MG VIAL 60 MG IV PUSH (09:38)
--- NOTE | 2022-06-13 11:51 | PM.IMPN ---
Progress Note: A&P Assessment and Plan (1) Pneumonia: Qualifiers: Laterality: bilateral Lung location: lower lobe of lung Pneumonia type: due to unspecified organism Qualified Code(s): J18.9 - Pneumonia, unspecified organism Code(s): J18.9 - Pneumonia, unspecified organism Status: Acute Assessment and Plan: Continue with azithromycin Rocephin as per community acquired antibiotic stewardship. Blood and sputum cultures are pending Tailor antibiotics to culture and sensitivity. Continue with dual nebulizers Wean off of oxygen when able. Otherwise the patient will need a home O2 evaluation 06/13/2022 interval history patient with history of COPD patient states he stopped smoking over 10 years ago, presented with cough shortness of breath and fever, CTAof the chest concerning for concerning for pneumonia with community-acquired pneumonia, patient being treated with ceftriaxone azithromycin, continue to complain persistent cough her lungs sound rhonchi with some wheezing will start the patient on low-dose methylprednisone and bronchodilator and continue Tessalon and guaifenesin, will continue to monitor and further recommendation to follow (2) Acute respiratory failure with hypoxia: Code(s): J96.01 - Acute respiratory failure with hypoxia Status: Acute Assessment and Plan: -the patient stated that she was diagnosed with COPD many years ago but has not been using any of her inhalers. I explained that the patient will need to follow-up with employee communications manager and repeat pulmonary function test. Continue with nebulizer treatments at this time. (3) Nausea and vomiting: Qualifiers: Vomiting type: unspecified Qualified Code(s): R11.2 - Nausea with vomiting, unspecified Code(s): R11.2 - Nausea with vomiting, unspecified Status: Acute Assessment and Plan: Continue with IV Zofran (4) HTN (hypertension): Code(s): I10 - Essential (primary) hypertension Status: Acute Assessment and Plan: Continue with losartan, Coreg and hydrochlorothiazide -continue to monitor BMP (5) Hypercholesterolemia: Code(s): E78.00 - Pure hypercholesterolemia, unspecified Status: Acute Assessment and Plan: Continue with Crestor (6) COPD (chronic obstructive pulmonary disease): Code(s): J44.9 - Chronic obstructive pulmonary disease, unspecified Status: Acute Assessment and Plan: -the patient will need to follow-up with her employee communications manager for PFT -continue with nebulizer treatments for now. (7) Anxiety: Code(s): F41.9 - Anxiety disorder, unspecified Status: Acute Assessment and Plan: -continue with Lexapro Plan Elevated D-dimer. CTA of the chest shows no PE. Venous Dopplers have been ordered. Subjective Date/time seen: 06/13/22 11:51 Shortness of breath with fever HPI-Narrative: This is a 62-year-old female patient who has a history of COPD of though she states she has not been using any inhalers.? The patient came to the emergency room with complaint of fever, cough and nausea.? The patient has had a productive cough for at least a week now.? She has also had some nasal congestion and runny nose as well.? T-max 101? since .? She took some Tylenol this morning.? The patient noticed that she was wheezing and having difficulty breathing.? The patient is not on home oxygen.? She denied any chest pain.? The patient stated was diagnosed with COPD many years ago and had inhalers at that time but has not used them since.? Chest x-ray was read as left basilar atelectasis.? Chest abdomen and pelvis CTA was read as the following. Patchy groundglass opacities bilaterally, consistent with pneumonia. 2:? No large central pulmonary embolism. Evaluation of the peripheral pulmonary arteries limited by motion. 3: Small pericardial effusion. 4: Mild mediastinal lymphadenopathy, likely reactive The patient was started on
[2022-06-13] MEDS: ONDANSETRON INJ 4 MG/2 ML VIAL IV PUSH (13:08)
[2022-06-14] VITALS (14 sets, daily range): BP systolic 104–134; BP diastolic 65–79; PULSE 60–78; RESP 16–18; TEMP 36.4–36.7; O2SAT 93–95
[2022-06-14] MEDS: IPRATROPIUM BR 0.02% INH SOLN 0.5 MG/2.5 ML VIAL INHALATION ×4 (02:18→21:06)
[2022-06-14 06:38] LABS: Hemoglobin 13.6 g/dL (12.0-15.0); Mean Corpuscular HGB Conc 33.2 g/dl (32-36); Mean Corpuscular Hemoglobin 29.8 pg (26-34); Mean Corpuscular Volume 89.7 fl (80-100); Mean Platelet Volume 11.3 fl (7.4-10.4); Platelet Count Result 177 k/mm3 (150-375); Red Blood Count 4.57 M/mm3 (4.2-5.4); Red Cell Distribution Width 12.7 % (11.5-14.5)
[2022-06-14 06:49] LABS: Anion Gap 2 mmol/L (8-16); Blood Urea Nitrogen 16 mg/dL (7-17); Calcium 8.5 mg/dL (8.4-10.2); Carbon Dioxide 31 mmol/L (22-30); Chloride 101 mmol/L (98-107); Estimated CRCL calculation 122 ml/min; Estimated Glomerular Filt Rate > 60; Glucose 124 mg/dL (65-110); Magnesium 2.2 mg/dL (1.6-2.3); Potassium 3.5 mmol/L (3.4-5.0); Sodium 134 mmol/L (137-145)
[2022-06-14] MEDS: cefTRIAXone 2 GM in SODIUM CHLORIDE 0.9% IV 100 ML 200 ML IVPB (09:18)
[2022-06-14] MEDS: ESCITALOPRAM OXALATE 10 MG TABLET PO (09:19)
[2022-06-14] MEDS: hydroCHLOROthiazide 25 MG TABLET PO (09:19)
[2022-06-14] MEDS: carvediloL 12.5 MG TABLET PO ×2 (09:20→16:19)
[2022-06-14] MEDS: CHOLECALCIFEROL 1,000 UNITS TABLET 2000 UNITS PO (09:20)
[2022-06-14] MEDS: methylPREDNISolone SOD SUCC 125 MG VIAL 60 MG IV PUSH (09:20)
[2022-06-14] MEDS: MULTIVITAMINS THERAPEUTIC TAB (*BKC) 1 TABLET PO (09:20)
[2022-06-14] MEDS: ROSUVASTATIN 10 MG TABLET 40 MG PO (09:20)
[2022-06-14] MEDS: LOSARTAN POTASSIUM 100 MG TABLET PO (09:20)
[2022-06-14] MEDS: guaiFENesin 600 MG/DEXTROMETHORPHAN 30 MG SR TAB 12 HR 1 TAB PO ×2 (09:20→20:48)
[2022-06-14] MEDS: ENOXAPARIN 40 MG/0.4 ML SYRINGE SUB-Q (09:21)
[2022-06-14] MEDS: POTASSIUM CHLORIDE 20 MEQ TABLET 40 MEQ PO (09:28)
[2022-06-14] MEDS: ONDANSETRON INJ 4 MG/2 ML VIAL IV PUSH (11:17)
--- NOTE | 2022-06-14 14:16 | PM.IMPN ---
Progress Note: A&P Assessment and Plan (1) Pneumonia: Qualifiers: Laterality: bilateral Lung location: lower lobe of lung Pneumonia type: due to unspecified organism Qualified Code(s): J18.9 - Pneumonia, unspecified organism Code(s): J18.9 - Pneumonia, unspecified organism Status: Acute Assessment and Plan: Continue with azithromycin Rocephin as per community acquired antibiotic stewardship. Blood and sputum cultures are pending Tailor antibiotics to culture and sensitivity. Continue with dual nebulizers Wean off of oxygen when able. Otherwise the patient will need a home O2 evaluation 06/14/2022 interval history patient with history of COPD patient states he stopped smoking over 10 years ago, presented with cough shortness of breath and fever, CTA of the chest concerning for concerning for pneumonia with community-acquired pneumonia, patient being treated with ceftriaxone azithromycin, again today continue to complain persistent cough her lungs sound rhonchi with some wheezing started the patient on low-dose methylprednisone and bronchodilator and continue Tessalon and guaifenesin, will continue to monitor and further recommendation to follow (2) Acute respiratory failure with hypoxia: Code(s): J96.01 - Acute respiratory failure with hypoxia Status: Acute Assessment and Plan: -the patient stated that she was diagnosed with COPD many years ago but has not been using any of her inhalers. I explained that the patient will need to follow-up with draw tender and repeat pulmonary function test. Continue with nebulizer treatments at this time. (3) Nausea and vomiting: Qualifiers: Vomiting type: unspecified Qualified Code(s): R11.2 - Nausea with vomiting, unspecified Code(s): R11.2 - Nausea with vomiting, unspecified Status: Acute Assessment and Plan: Continue with IV Zofran (4) HTN (hypertension): Code(s): I10 - Essential (primary) hypertension Status: Acute Assessment and Plan: Continue with losartan, Coreg and hydrochlorothiazide -continue to monitor BMP (5) Hypercholesterolemia: Code(s): E78.00 - Pure hypercholesterolemia, unspecified Status: Acute Assessment and Plan: Continue with Crestor (6) COPD (chronic obstructive pulmonary disease): Code(s): J44.9 - Chronic obstructive pulmonary disease, unspecified Status: Acute Assessment and Plan: -the patient will need to follow-up with her draw tender for PFT -continue with nebulizer treatments for now. (7) Anxiety: Code(s): F41.9 - Anxiety disorder, unspecified Status: Acute Assessment and Plan: -continue with Lexapro Plan Elevated D-dimer. CTA of the chest shows no PE. Venous Dopplers have been ordered. Subjective Date/time seen: 06/14/22 14:16 06/14/2022 interval history patient with history of COPD patient states he stopped smoking over 10 years ago, presented with cough shortness of breath and fever, CTA of the chest concerning for concerning for pneumonia with community-acquired pneumonia, patient being treated with ceftriaxone azithromycin, again today continue to complain persistent cough her lungs sound rhonchi with some wheezing started the patient on low-dose methylprednisone and bronchodilator and continue Tessalon and guaifenesin, will continue to monitor and further recommendation to follow Review of Systems Review of Systems: All systems reviewed & are unremarkable except as noted in HPI and below Objective Data Vital Signs Vital Signs: Vital Signs - 24 hr 06/13/22 15:40 06/13/22 16:01 06/13/22 16:04 Temperature Pulse Rate 64 68 68 Respiratory Rate 18 18 Blood Pressure Pulse Oximetry Oxygen Delivery Oxygen Flow Rate Fraction of Inspired Oxygen 06/13/22 20:50 06/13/22 20:51 06/13/22 21:04 Temperature Pulse Rate 65 67 Respiratory Rate 18 18 Blo
--- NOTE | 2022-06-14 16:06 | PC.NURSE ---
Pt has been resting in bed most of the day. Pt stated she was nauseous early in the shift. Pt was given zofran and that made pt feel better. Pt ambulated independently in the room. Pt has had no complaints and is compliant with care. Pt is A&O4 and participates and contributes in plan of care. Will continue to monitor pt.
[2022-06-15] VITALS (16 sets, daily range): BP systolic 124–139; BP diastolic 68–94; PULSE 63–80; RESP 18–20; TEMP 35.9–36.5; O2SAT 93–98
[2022-06-15] MEDS: IPRATROPIUM BR 0.02% INH SOLN 0.5 MG/2.5 ML VIAL INHALATION ×4 (02:41→20:32)
[2022-06-15 06:38] LABS: Hematocrit 40.1 % (37.0-47.0); Hemoglobin 13.5 g/dL (12.0-15.0); Mean Corpuscular HGB Conc 33.7 g/dl (32-36); Mean Corpuscular Hemoglobin 29.5 pg (26-34); Mean Corpuscular Volume 87.7 fl (80-100); Mean Platelet Volume 11.4 fl (7.4-10.4); Platelet Count Result 180 k/mm3 (150-375); Red Blood Count 4.57 M/mm3 (4.2-5.4); Red Cell Distribution Width 12.6 % (11.5-14.5); White Blood Count 6.2 K/mm3 (4.5-10.0)
[2022-06-15 06:52] LABS: Anion Gap 4 mmol/L (8-16); Blood Urea Nitrogen 18 mg/dL (7-17); Calcium 8.4 mg/dL (8.4-10.2); Carbon Dioxide 30 mmol/L (22-30); Chloride 104 mmol/L (98-107); Estimated CRCL calculation 122 ml/min; Estimated Glomerular Filt Rate > 60; Glucose 96 mg/dL (65-110); Magnesium 2.4 mg/dL (1.6-2.3); Potassium 3.8 mmol/L (3.4-5.0); Sodium 138 mmol/L (137-145)
[2022-06-15] MEDS: ESCITALOPRAM OXALATE 10 MG TABLET PO (08:23)
[2022-06-15] MEDS: CHOLECALCIFEROL 1,000 UNITS TABLET 2000 UNITS PO (08:23)
[2022-06-15] MEDS: cefTRIAXone 2 GM in SODIUM CHLORIDE 0.9% IV 100 ML 200 ML IVPB (08:24)
[2022-06-15] MEDS: ROSUVASTATIN 10 MG TABLET 40 MG PO (08:24)
[2022-06-15] MEDS: hydroCHLOROthiazide 25 MG TABLET PO (08:24)
[2022-06-15] MEDS: carvediloL 12.5 MG TABLET PO ×2 (08:24→17:17)
[2022-06-15] MEDS: LOSARTAN POTASSIUM 100 MG TABLET PO (08:24)
[2022-06-15] MEDS: guaiFENesin 600 MG/DEXTROMETHORPHAN 30 MG SR TAB 12 HR 1 TAB PO ×2 (08:24→21:13)
[2022-06-15] MEDS: MULTIVITAMINS THERAPEUTIC TAB (*BKC) 1 TABLET PO (08:24)
[2022-06-15] MEDS: ENOXAPARIN 40 MG/0.4 ML SYRINGE SUB-Q (08:25)
[2022-06-15] MEDS: methylPREDNISolone SOD SUCC 125 MG VIAL 60 MG IV PUSH (08:25)
--- NOTE | 2022-06-15 13:40 | PM.IMPN ---
Progress Note: A&P Assessment and Plan (1) Pneumonia: Qualifiers: Laterality: bilateral Lung location: lower lobe of lung Pneumonia type: due to unspecified organism Qualified Code(s): J18.9 - Pneumonia, unspecified organism Code(s): J18.9 - Pneumonia, unspecified organism Status: Acute Assessment and Plan: Continue with azithromycin Rocephin as per community acquired antibiotic stewardship. Blood and sputum cultures are pending Tailor antibiotics to culture and sensitivity. Continue with dual nebulizers Wean off of oxygen when able. Otherwise the patient will need a home O2 evaluation 06/15/2022 interval history patient with history of COPD patient states he stopped smoking over 10 years ago, presented with cough shortness of breath and fever, CTA of the chest concerning for concerning for pneumonia with community-acquired pneumonia, patient being treated with ceftriaxone azithromycin, again on 06/14 continue to complain persistent cough her lungs sound rhonchi with some wheezing started the patient on low-dose methylprednisone and bronchodilator and continue Tessalon and guaifenesin, today repeat x-ray showed persistent pneumonia though patient clinical symptoms are improved and not as shortness of breath or coughing, will continue to monitor and further recommendation to follow (2) Acute respiratory failure with hypoxia: Code(s): J96.01 - Acute respiratory failure with hypoxia Status: Acute Assessment and Plan: -the patient stated that she was diagnosed with COPD many years ago but has not been using any of her inhalers. I explained that the patient will need to follow-up with roll press operator and repeat pulmonary function test. Continue with nebulizer treatments at this time. (3) Nausea and vomiting: Qualifiers: Vomiting type: unspecified Qualified Code(s): R11.2 - Nausea with vomiting, unspecified Code(s): R11.2 - Nausea with vomiting, unspecified Status: Acute Assessment and Plan: Continue with IV Zofran (4) HTN (hypertension): Code(s): I10 - Essential (primary) hypertension Status: Acute Assessment and Plan: Continue with losartan, Coreg and hydrochlorothiazide -continue to monitor BMP (5) Hypercholesterolemia: Code(s): E78.00 - Pure hypercholesterolemia, unspecified Status: Acute Assessment and Plan: Continue with Crestor (6) COPD (chronic obstructive pulmonary disease): Code(s): J44.9 - Chronic obstructive pulmonary disease, unspecified Status: Acute Assessment and Plan: -the patient will need to follow-up with her roll press operator for PFT -continue with nebulizer treatments for now. (7) Anxiety: Code(s): F41.9 - Anxiety disorder, unspecified Status: Acute Assessment and Plan: -continue with Lexapro Plan Elevated D-dimer. CTA of the chest shows no PE. Venous Dopplers have been ordered. Subjective Date/time seen: 06/15/22 13:40 Continue with azithromycin Rocephin as per community acquired antibiotic stewardship. Blood and sputum cultures are pending Tailor antibiotics to culture and sensitivity. Continue with dual nebulizers Wean off of oxygen when able. Otherwise the patient will need a home O2 evaluation 06/15/2022 interval history patient with history of COPD patient states he stopped smoking over 10 years ago, presented with cough shortness of breath and fever, CTA of the chest concerning for concerning for pneumonia with community-acquired pneumonia, patient being treated with ceftriaxone azithromycin, again on 06/14 continue to complain persistent cough her lungs sound rhonchi with some wheezing started the patient on low-dose methylprednisone and bronchodilator and continue Tessalon and guaifenesin, today repeat x-ray showed persistent pneumonia though patient clinical symptoms are improved and not as shortness of breath or coughing, will continue to m
--- NOTE | 2022-06-15 19:35 | PC.NURSE ---
Pt had a chest Xray that was done today. Pt was able to shower independently and tolerated well. Pt has had no complaints and participates in plan of care. Will continue to monitor pt.
[2022-06-16] VITALS (17 sets, daily range): BP systolic 127–135; BP diastolic 58–80; PULSE 60–106; RESP 12–18; TEMP 36.2–36.4; O2SAT 61–96
[2022-06-16] MEDS: IPRATROPIUM BR 0.02% INH SOLN 0.5 MG/2.5 ML VIAL INHALATION ×4 (02:38→20:29)
[2022-06-16 07:02] LABS: Hematocrit 41.6 % (37.0-47.0); Hemoglobin 13.7 g/dL (12.0-15.0); Mean Corpuscular HGB Conc 32.9 g/dl (32-36); Mean Corpuscular Hemoglobin 29.5 pg (26-34); Mean Corpuscular Volume 89.5 fl (80-100); Mean Platelet Volume 10.9 fl (7.4-10.4); Platelet Count Result 192 k/mm3 (150-375); Red Blood Count 4.65 M/mm3 (4.2-5.4); Red Cell Distribution Width 12.7 % (11.5-14.5); White Blood Count 6.5 K/mm3 (4.5-10.0)
[2022-06-16 07:14] LABS: Anion Gap 5 mmol/L (8-16); Blood Urea Nitrogen 19 mg/dL (7-17); Calcium 8.5 mg/dL (8.4-10.2); Carbon Dioxide 30 mmol/L (22-30); Chloride 103 mmol/L (98-107); Estimated CRCL calculation 103 ml/min; Estimated Glomerular Filt Rate > 60; Glucose 98 mg/dL (65-110); Magnesium 2.3 mg/dL (1.6-2.3); Potassium 3.7 mmol/L (3.4-5.0); Sodium 138 mmol/L (137-145)
[2022-06-16] MEDS: cefTRIAXone 2 GM in SODIUM CHLORIDE 0.9% IV 100 ML 200 ML IVPB (08:28)
[2022-06-16] MEDS: carvediloL 12.5 MG TABLET PO ×2 (08:33→18:05)
[2022-06-16] MEDS: CHOLECALCIFEROL 1,000 UNITS TABLET 2000 UNITS PO (08:37)
[2022-06-16] MEDS: guaiFENesin 600 MG/DEXTROMETHORPHAN 30 MG SR TAB 12 HR 1 TAB PO ×2 (08:37→20:05)
[2022-06-16] MEDS: ESCITALOPRAM OXALATE 10 MG TABLET PO (08:37)
[2022-06-16] MEDS: MULTIVITAMINS THERAPEUTIC TAB (*BKC) 1 TABLET PO (08:37)
[2022-06-16] MEDS: LOSARTAN POTASSIUM 100 MG TABLET PO (08:37)
[2022-06-16] MEDS: methylPREDNISolone SOD SUCC 125 MG VIAL 60 MG IV PUSH (08:37)
[2022-06-16] MEDS: ROSUVASTATIN 10 MG TABLET 40 MG PO (08:37)
[2022-06-16] MEDS: ENOXAPARIN 40 MG/0.4 ML SYRINGE SUB-Q (08:37)
[2022-06-16] MEDS: hydroCHLOROthiazide 25 MG TABLET PO (08:37)
--- NOTE | 2022-06-16 11:48 | HOMEO2EVAL ---
Evaluation was performed at [facility] Home Oxygen Evaluation RC: Home Oxygen (O2) Evaluation Start: 06/12/22 14:55 Freq: ONCE Status: Active Protocol: RPE Activity Type Activity Date Activity User E-sign Co-sign Detail Recorded Client Recorded Date Recorded By Document 06/16/22 11:10 DJO [email or web address] 06/16/22 11:48 DJO Document 06/16/22 11:30 [email or web address] [email or web address] 06/16/22 11:48 DJO Document 06/16/22 11:40 [email or web address] [email or web address] 06/16/22 11:48 DJO 06/16/22 06/16/22 06/16/22 11:10 11:30 11:40 Home O2 Evaluation [Oxygen] -Test Phase Resting Exercise Resting -Oxygen Delivery Room Air Room Air Room Air [Pulse Oximetry] -Pulse Oximetry (90-100 %) 94 91 93 [Pulse Rate] -Pulse Rate (60-100 beats/min) 60 62 62 [Evaluation] -Activity Tolerance Good [Charges] -Treatment Charges O2 Evaluation - Inpatient
--- NOTE | 2022-06-16 11:49 | PCRCNOTE ---
HOME O2 EVAL COMPLETE. PATIENT DOES NOT REQUIRE HOME O2 AT THIS TIME. RN NOTIFIED.
--- NOTE | 2022-06-16 16:29 | PM.IMPN ---
Progress Note: A&P Assessment and Plan (1) Pneumonia: Qualifiers: Laterality: bilateral Lung location: lower lobe of lung Pneumonia type: due to unspecified organism Qualified Code(s): J18.9 - Pneumonia, unspecified organism Code(s): J18.9 - Pneumonia, unspecified organism Status: Acute Assessment and Plan: on azithromycin and Rocephin. Blood and sputum cultures are pending Continue bronchodilators Wean off of oxygen when able. Otherwise the patient will need a home O2 evaluation history of COPD History of tobacco abuse quit smoking 10 years ago Hypoxic respiratory failure acute CTA negative for PE ground-glass opacities suggestive of pneumonia steroid bronchodilator and continue Tessalon and guaifenesin Will switch to oral steroid (2) Acute respiratory failure with hypoxia: Code(s): J96.01 - Acute respiratory failure with hypoxia Status: Acute Assessment and Plan: -the patient stated that she was diagnosed with COPD many years ago but has not been using any of her inhalers. I explained that the patient will need to follow-up with russian language professor and repeat pulmonary function test. Continue with nebulizer treatments at this time. (3) Nausea and vomiting: Qualifiers: Vomiting type: unspecified Qualified Code(s): R11.2 - Nausea with vomiting, unspecified Code(s): R11.2 - Nausea with vomiting, unspecified Status: Acute Assessment and Plan: Continue with IV Zofran (4) HTN (hypertension): Code(s): I10 - Essential (primary) hypertension Status: Acute Assessment and Plan: Continue with losartan, Coreg and hydrochlorothiazide -continue to monitor BMP (5) Hypercholesterolemia: Code(s): E78.00 - Pure hypercholesterolemia, unspecified Status: Acute Assessment and Plan: Continue with Crestor (6) COPD (chronic obstructive pulmonary disease): Code(s): J44.9 - Chronic obstructive pulmonary disease, unspecified Status: Acute Assessment and Plan: -the patient will need to follow-up with her russian language professor for PFT -continue with nebulizer treatments for now. (7) Anxiety: Code(s): F41.9 - Anxiety disorder, unspecified Status: Acute Assessment and Plan: -continue with Lexapro Plan Elevated D-dimer. CTA of the chest shows no PE. Venous Dopplers negative Subjective Date/time seen: 06/16/22 16:29 Interval history: feeling lot better. Off oxygen. No other complaint. No leg swelling. Review of Systems Review of Systems: All systems reviewed & are unremarkable except as noted in HPI and below Exam Narrative: GENERAL: Well appearing, obese, non-toxic, in no acute distress. HEAD: Normocephalic, atraumatic. EENT: PERRLA/EOMI, conjunctiva clear. Nasal quality to voice. MMs normal. NECK: Supple. No adenopathy, no masses. RESPIRATORY: Airway patent, respirations nonlabored. coarse breath sounds no wheezes CARDIOVASCULAR: Regular rate and rhythm without murmurs, rubs, or gallops.? Radial pulses 2+ and equal bilaterally. ABDOMINAL: Soft, no tenderness throughout abdomen, nondistended, no hepatosplenomegaly. Normoactive BS. MUSCULOSKELETAL: Moves all extremities. Strength/ROM intact without gross deformities. No edema. SKIN: Warm, dry, normal color. No rashes. NEURO: A&O X3. Speech clear. Cranial nerves II-XII grossly intact. Steady gait. No ataxic movements. PSYCHIATRIC: Appropriate mood and affect. Normal interaction. Objective Data Vital Signs Vital Signs: Vital Signs - 24 hr 06/15/22 17:17 06/15/22 20:40 06/15/22 20:41 Temperature Pulse Rate 66 67 Respiratory Rate 18 Blood Pressure Pulse Oximetry 93 Oxygen Delivery Nasal Cannula Oxygen Flow Rate 2 Fraction of Inspired Oxygen 06/15/22 20:58 06/15/22 20:00 06/15/22 22:00 Temperature 97.7 F Pulse Rate 71 71 64 Respiratory Rate 18 18 20 Blood Pressure 127/74 Pulse Oximetry 93 94
[2022-06-17] VITALS (9 sets, daily range): BP systolic 128–144; BP diastolic 72–87; PULSE 57–71; RESP 16–20; TEMP 35.9–36.1; O2SAT 93–96
[2022-06-17] MEDS: IPRATROPIUM BR 0.02% INH SOLN 0.5 MG/2.5 ML VIAL INHALATION ×3 (02:37→14:03)
[2022-06-17 07:17] LABS: Hematocrit 42.2 % (37.0-47.0); Hemoglobin 14.2 g/dL (12.0-15.0); Mean Corpuscular HGB Conc 33.6 g/dl (32-36); Mean Corpuscular Hemoglobin 29.9 pg (26-34); Mean Corpuscular Volume 88.8 fl (80-100); Mean Platelet Volume 11.4 fl (7.4-10.4); Platelet Count Result 221 k/mm3 (150-375); Red Blood Count 4.75 M/mm3 (4.2-5.4); Red Cell Distribution Width 12.6 % (11.5-14.5)
[2022-06-17 07:33] LABS: Anion Gap 5 mmol/L (8-16); Blood Urea Nitrogen 18 mg/dL (7-17); Calcium 8.7 mg/dL (8.4-10.2); Carbon Dioxide 31 mmol/L (22-30); Chloride 103 mmol/L (98-107); Estimated CRCL calculation 103 ml/min; Estimated Glomerular Filt Rate > 60; Glucose 94 mg/dL (65-110); Magnesium 2.5 mg/dL (1.6-2.3); Potassium 3.8 mmol/L (3.4-5.0); Sodium 139 mmol/L (137-145)
[2022-06-17] MEDS: carvediloL 12.5 MG TABLET PO (08:49)
[2022-06-17] MEDS: predniSONE 20 MG TABLET 40 MG PO (08:49)
[2022-06-17] MEDS: MULTIVITAMINS THERAPEUTIC TAB (*BKC) 1 TABLET PO (08:50)
[2022-06-17] MEDS: guaiFENesin 600 MG/DEXTROMETHORPHAN 30 MG SR TAB 12 HR 1 TAB PO (08:50)
[2022-06-17] MEDS: hydroCHLOROthiazide 25 MG TABLET PO (08:50)
[2022-06-17] MEDS: ROSUVASTATIN 10 MG TABLET 40 MG PO (08:50)
[2022-06-17] MEDS: ESCITALOPRAM OXALATE 10 MG TABLET PO (08:50)
[2022-06-17] MEDS: ENOXAPARIN 40 MG/0.4 ML SYRINGE SUB-Q (08:50)
[2022-06-17] MEDS: CHOLECALCIFEROL 1,000 UNITS TABLET 2000 UNITS PO (08:50)
[2022-06-17] MEDS: LOSARTAN POTASSIUM 100 MG TABLET PO (08:50)
[2022-06-17] MEDS: cefTRIAXone 2 GM in SODIUM CHLORIDE 0.9% IV 100 ML 200 ML IVPB (09:01)
--- NOTE | 2022-06-17 14:15 | PM.DS ---
DS: Admitting Diagnosis Discharge Date 06/17/2022 Admitting Diagnosis shortness of breath DS: Discharge Diagnosis Discharge Diagnosis (1) Pneumonia: Qualifiers: Laterality: bilateral Lung location: lower lobe of lung Pneumonia type: due to unspecified organism Qualified Code(s): J18.9 - Pneumonia, unspecified organism Code(s): J18.9 - Pneumonia, unspecified organism Status: Acute (2) Acute respiratory failure with hypoxia: Code(s): J96.01 - Acute respiratory failure with hypoxia Status: Acute (3) Nausea and vomiting: Qualifiers: Vomiting type: unspecified Qualified Code(s): R11.2 - Nausea with vomiting, unspecified Code(s): R11.2 - Nausea with vomiting, unspecified Status: Acute (4) HTN (hypertension): Code(s): I10 - Essential (primary) hypertension Status: Acute (5) Hypercholesterolemia: Code(s): E78.00 - Pure hypercholesterolemia, unspecified Status: Acute (6) COPD (chronic obstructive pulmonary disease): Code(s): J44.9 - Chronic obstructive pulmonary disease, unspecified Status: Acute (7) Anxiety: Code(s): F41.9 - Anxiety disorder, unspecified Status: Acute DS: Summary Hospital Course Hospital Course: # bilateral Pneumonia: ?on azithromycin and Rocephin. finished course of azithromycin. Switch to Omnicef at discharge Blood and sputum cultures are negative ? Continue bronchodilators weaned off oxygen during the hospital stay #?history of COPD #History of tobacco abuse quit smoking 10 years ago #Hypoxic respiratory failure acute CTA negative for PE ground-glass opacities suggestive of pneumonia steroid bronchodilator and continue Tessalon and guaifenesin Will switch to oral steroid and taper steroid as an outpatient basis # hypertension: Continue with losartan, Coreg and hydrochlorothiazide -continue to monitor BMP # hyperlipidemia: Continue with Crestor # possible COPD: -the patient will need to follow-up with her government relations director for PFT -continue with nebulizer treatments for now. # anxiety disorder: -continue with Lexapro # Elevated D-dimer.? CTA of the chest shows no PE.? Venous Dopplers? negative Time Spent with Patient Time attestation: Total time spent providing and/or coordinating discharge services: 40 minutes Exam Narrative: GENERAL: Well appearing, obese, non-toxic, in no acute distress. HEAD: Normocephalic, atraumatic. EENT: PERRLA/EOMI, conjunctiva clear. Nasal quality to voice. MMs normal. NECK: Supple. No adenopathy, no masses. RESPIRATORY: Airway patent, respirations nonlabored. coarse breath sounds no wheezes CARDIOVASCULAR: Regular rate and rhythm without murmurs, rubs, or gallops.? Radial pulses 2+ and equal bilaterally. ABDOMINAL: Soft, no tenderness throughout abdomen, nondistended, no hepatosplenomegaly. Normoactive BS. MUSCULOSKELETAL: Moves all extremities. Strength/ROM intact without gross deformities. No edema. SKIN: Warm, dry, normal color. No rashes. NEURO: A&O X3. Speech clear. Cranial nerves II-XII grossly intact. Steady gait. No ataxic movements. PSYCHIATRIC: Appropriate mood and affect. Normal interaction. DS: Data Data Completed and Pending Labs on day of discharge: Labs from last 24 hours 06/17/22 06/17/22 06:37 06:37 WBC 7.0 RBC 4.75 Hgb 14.2 Hct 42.2 MCV 88.8 MCH 29.9 MCHC 33.6 RDW 12.6 Plt Count 221 MPV 11.4 H Sodium 139 Potassium 3.8 Chloride 103 Carbon Dioxide 31 H Anion Gap 5 L BUN 18 H Creatinine 0.60 L Estim Creat Clear Calc 103 Estimated GFR > 60 Glucose 94 Calcium 8.7 Magnesium 2.5 H Preliminary micro results at discharge 06/12/22 19:31 Blood Culture - Preliminary Blood 06/12/22 19:31 Blood Culture - Preliminary Blood Discharge Plan Discharge Attending physician on discharge: Alexander Bolden Consulting providers: Skylar Martinez
[2022-06-19 22:02] LABS: Factor V (Leiden) Mutation POSITIVE
== END 2022-06-17 16:15 | disposition home or self-care (01) | DRG 193 ==
LOC: ANHED 10:40 → ANH3MEDSUR 13:34
PROVIDERS: Family Medicine; Nurse Practitioner; Admitting Provider Hospitalist; Emergency Provider Physician Assistant; PCP Physician Assistant; Visit Provider Internal Medicine
DX: J18.9 Pneumonia, unspecified organism (principal); J96.01 Acute respiratory failure with hypoxia; E78.00 Pure hypercholesterolemia, unspecified; F41.9 Anxiety disorder, unspecified; I10 Essential (primary) hypertension; J43.9 Emphysema, unspecified; M19.90 Unspecified osteoarthritis, unspecified site; Z20.822 Contact with and (suspected) exposure to COVID-19; Z90.710 Acquired absence of both cervix and uterus; Z87.891 Personal history of nicotine dependence
CPT/HCPCS: 36415; 71046; 71275; 74177; 80048; 80053; 81241; 83605; 83690; 83735; 84443; 84484; 85025; 85027; 85380; 87040; 87636; 93005; 93970; 94618; 94640; 96365; 96367; 96372; 96375; 96376; 99285; A9270; G0378; J0131; J0456; J0696; J1650; J2405; J2930; J7512; Q9967

== ENCOUNTER → 2022-06-30 16:45 | Outpatient (CLI) | payer OTHER, SELFPAY ==
--- NOTE | ~2022-06-30 | XR_ITS ---
Clinical Indication: Pneumonia PA and lateral views of the chest: Comparison: 06/15/2022, Findings: The lungs are clear, without evidence of focal consolidation or pleural effusion. Cardiome diastinal silhouette is stable. Bones and soft tissues are unremarkable. Impression: Clear lungs. Reviewed, dictated and finalized at location . TABLE TRIMMER Impression: Clear lungs.
== END ==
PROVIDERS: PCP Physician Assistant; Visit Provider Physician Assistant
DX: Z87.01 Personal history of pneumonia (recurrent) (principal)
CPT/HCPCS: 71046

== ENCOUNTER 2022-09-28 10:45 | Outpatient (CLI) | payer OTHER, SELFPAY ==
--- NOTE | ~2022-09-28 | DEXA_ITS ---
Bone Density Report Name: TAMIKA CURRAN Age: 62 Sex: Female Ethnicity: White Date of : 1960 Indication: postmenopausal; screening for osteoporosis; inflammatory bowel disease; asthma or emphysema; hysterectomy; Referring Provider: MICHELLE, CARROLL Study: Bone densitometry was performed. Exam Date: September 28, 2022 Accession number: [id number] Bone Density: Region BMD T-score Z-score Classification AP Spine(L1-L4) 1.123 0.7 2.3 Normal Femoral Neck (Left) 0.731 -1.1 0.3 Osteopenia Total Hip (Left) 0.955 0.1 1.2 Normal Femoral Neck (Right) 0.722 -1.1 0.2 Osteopenia Total Hip (Right) 0.951 0.1 1.1 Normal Total Hip Mean 0.953 0.1 1.2 Normal World Health Organization criteria for BMD impression classify patients as: Normal (T-score at or above -1.0), Osteopenia (T-score between -1.0 and -2.5), or Osteoporosis (T-score at or below -2.5). 10-year Fracture Risk(1): Major Osteoporotic Fracture 6.9% Hip Fracture 0.4% Reported Risk Factors: [place] (), Neck BMD=0.731, BMI=39.7 (1) FRAX(R) Version 3.08. Fracture probability calculated for an untreated patient. Fracture probability may be lower if the patient has received treatment. Clinical Information Provided by Patient: Has used the following medications: Vitamin D Has the following medical conditions: Asthma or Emphysema, Inflammatory bowel diseases, Hysterectomy Patient maximum height was 67 Menopause Age: 40 No regular weight bearing exercise Drinks caffeinated beverages Onset of menses at age 13 Number of children 3 Impression: The patient has low bone mass, based on the Left Femoral Neck T-score. The patient has an estimated ten-year risk of hip fracture of 0.4% and an estimated ten-year risk of major fracture of 6.9%, based on the WHO FRAX algorithm. Discussion: BONE DENSITY IS LOW AT ONE OR MORE SKELETAL SITES. This patient's lowest T-score is low at one or more skeletal sites. It meets the World Health Organization's (WHO) criteria for ?low bone mass? (T-score between -1.0 and -2.5). The patient's 10-year risk of fracture as calculated by FRAX is less than the threshold where pharmacological therapy is recommended by the National Osteoporosis Foundation (NOF). However, all treatment decisions require clinical judgment and consideration of individual patient factors, including patient preferences, comorbidities, previous drug use, risk factors not captured in the FRAX model (e.g., frailty, falls, vitamin D deficiency, increased bone turnover, interval significant decline in bone density) and possible under or overestimation of fracture risk by FRAX. The patient should follow a healthful lifestyle (good nutrition with adequate calcium and vitamin D, and appropriate weight-bearing exercise). Follow-Up: Co
--- NOTE | ~2022-09-28 | MM_ITS ---
EXAMINATION: MM screening aarti BI w gianni HISTORY: Screening TECHNIQUE: Craniocaudal and mediolateral oblique 3-D tomosynthesis images were obtained and synthetic 2-D images were generated. CAD analysis was submitted and interpreted. COMPARISON: Comparison to multiple prior studies sequentially, with oldest reviewed study dated 05/11. BREAST PARENCHYMAL COMPOSITION: There are scattered areas of fibroglandular density. FINDINGS: There is no evidence of suspicious mass, calcification, or architectural distortion to sugg est malignancy in either breast. There has been no suspicious interval change. IMPRESSION: 1. No mammographic evidence of malignancy. 2. Recommend routine screening mammography in one year. BI-RADS Category 1: Negative Reviewed, dictated and finalized at location A.
== END 2022-09-28 10:46 | disposition home or self-care (01) ==
PROVIDERS: PCP Physician Assistant; Visit Provider Physician Assistant
DX: Z12.31 Encounter for screening mammogram for malignant neoplasm of breast (principal); M85.9 Disorder of bone density and structure, unspecified; Z78.0 Asymptomatic menopausal state
CPT/HCPCS: 77063; 77067; 77080

== ENCOUNTER 2023-11-02 15:16 | Outpatient (CLI) | payer OTHER, SELFPAY ==
--- NOTE | ~2023-11-02 | MM_ITS ---
EXAMINATION: MM screening aarti BI w gianni HISTORY: Screening TECHNIQUE: Craniocaudal and mediolateral oblique 3-D tomosynthesis images were obtained and synthetic 2-D images were generated. CAD analysis was submitted and interpreted. COMPARISON: Comparison to multiple prior studies sequentially, with oldest reviewed study dated 12/2015. BREAST PARENCHYMAL COMPOSITION: Not dense: There are scattered areas of fibroglandular density. FINDINGS: There is no evidence of suspicious mass, calcification, or architectural distortion to sugg est malignancy in either breast. There has been no suspicious interval change. IMPRESSION: 1. No mammographic evidence of malignancy. 2. Recommend routine screening mammography in one year. BI-RADS Category 1: Negative Reviewed, dictated and finalized at location B.
== END 2023-11-02 15:17 | disposition home or self-care (01) ==
LOC: ANHIMG 15:18
PROVIDERS: PCP Physician Assistant; Visit Provider Physician Assistant
DX: Z12.31 Encounter for screening mammogram for malignant neoplasm of breast (principal)
CPT/HCPCS: 77063; 77067

== ENCOUNTER 2025-02-04 08:57 | Outpatient (CLI) | payer OTHER, SELFPAY ==
--- NOTE | ~2025-02-04 | MM_ITS ---
EXAMINATION: MM screening aarti BI w gianni HISTORY: Screening TECHNIQUE: Craniocaudal and mediolateral oblique 3-D tomosynthesis images were obtained and synthetic 2-D images were generated. CAD analysis was submitted and interpreted. COMPARISON: 09/28/2022 BREAST PARENCHYMAL COMPOSITION: There are scattered areas of fibroglandular density. FINDINGS: There is no evidence of suspicious mass, calcification, or architectural distortion to suggest malignancy. There has been no suspicious interval change. IMPRESSION: 1. No mammographic evidence of malignancy. Recommend routine screening mammography in one year. BI-RADS Category 2: Benign finding(s) Reviewed, dictated and finalized at location Q. IMPRESSION: 1. No mammographic evidence of malignancy. Recommend routine screening mammogra phy in one year. BI-RADS Category 2: Benign finding(s)
--- OUTSIDE RECORDS SUMMARY | 2025-02-04 09:24 | XMS_ITS | Clinical Summary ---
Author Organization [facility] Address [address] [place] [address] Phone Care Team Providers Care Chief Operations Officer Name Role Phone Cody Gómez MD Primary Care Provider [phone] Allergies No known active allergies Medications ramipril (ALTACE) 10 mg Oral Cap Take by mouth. Active EZETIMIBE (ZETIA PO) Take by mouth. Active aspirin (TRINH) 81 mg Oral Tab Take by mouth. Active ESTROGEN,CORINNE/M E-TESTOSTERONE (ESTRATEST PO) Take by mouth. Active ROSUVASTATIN CALCIUM (CRESTOR PO)Indications:D iffuse cystic mastopathy,Masta lgia,Intraductal papilloma Take by mouth. Active Active Problems Problem Noted Date Diagnosed Date Hyperlipidemia HTN (hypertension) Intraductal papilloma Family History Medical History Relation Name Comments Other Father heart attack Relation Name Status Comments Father Social History Tobacco Use Types Packs/Day Years Used Date Smoking Tobacco: Never Alcohol Use Standard Drinks/Week Comments Yes 0 (1 standard drink = 0.6 oz pur e alcohol) rarely Comments No Sex and Gender Information Value Date Recorded Sex Assigned at Not on file Legal Sex Female 5:42 AM [employer] Gender Identity Not on file Sexual Orientation Not on file Occupation Industry Job Start Date Job End Date Not on file Not on file Not on file Not on file Last Filed Vital Signs Vital Sign Reading Time Taken Comments Blood Pressure 132/80 01/14/2009 3:25 PM CDT Pulse - - Temperature - - Respiratory Rate - - Oxygen Saturation - - Inhaled Oxygen Concentration - - Weight 89.8 kg (198 lb) 01/14/2009 3:25 PM CDT Height 170.2 cm (5' 7) 01/14/2009 3:25 PM CDT Body Mass Index 31.01 01/14/2009 3:25 PM CDT Plan of Treatment Health Maintenance Due Date Last Done Comments DTAP/TDAP/TD VACCINES (1 - Tdap) 1979 HPV/Cotest (21-29) 1981 CERVICAL CANCER SCREENING 1990 HPV/Cotest (30-65) 1990 PAP SMEAR 1990 COLORECTAL SCREENING 2005 Colorectal Cancer Screening 2005 FIT-DNA Q 3 years 2005 FIT/FOBT Q 1 year 2005 Flex Sig/CT Colonography Q 5 years 2005 BREAST CANCER SCREENING 01/14/2010 01/14/2009, 07/04 ZOSTER VACCINE (1 of 2) 2010 INFLUENZA VACCINE (#1) 2024 RSV VACCINE (60+ or ) (1 - 1-dose 75+ series) 2035 Procedures Procedure Name Priority Date/Time Associated Diagnosis Comments MAMMO DIAGNOSTIC BILATERAL W OR WO CAD Routine 01/14/2009 from Last 3 Months or Most Recently Relevant to Health Maintenance Results * MAMMO DIGITAL DIAG BILAT (01/14/2009) Anatomical Region Laterality Modality Breast Bilateral Other Ольга Zapata MD MAMMO ORDERABLES Final Result from Last 3 Months or Most Recently Relevant to Health Maintenance Insurance [employer] PPO [id number] Care Teams Chief Operations Officer Relationship Specialty Start Date End Date Cody Gómez MD [address] [place] [address] PCP - General 06/20/08
--- OUTSIDE RECORDS SUMMARY | 2025-02-04 09:24 | XMS_ITS | Encounter Summary ---
Author Organization [facility] Address [address] [place] [address] Care Team Providers Care Web Production Manager Name Role Phone Cody Gómez MD Primary Care Provider [phone] Encounter Details Date Type Department Care Team (Late st Contact Info) Description 06/26/2008 Outpatient Historical [facility] Srikanth Moeller MD [address] [facility] [address] [place] [address] Social History Tobacco Use Types Packs/Day Years Used Date Smoking Tobacco: Never Assessed Comments Unknown Sex and Gender Information Value Date Recorded Sex Assigned at Not on file Legal Sex Female 5:42 AM [employer] Gender Identity Not on file Sexual Orientation Not on file documented as of this encounter Plan of Treatment Not on file documented as of this encounter Procedures Procedure Name Priority Date/Time Associated Diagnosis Comments PATHOLOGY Routine 07/04/2008 10:45 AM CDT MAMMO DIAGNOSTIC UNI RIGHT W OR WO CAD Routine 07/04/2008 8:39 AM CDT XR CONSULTATION Routine 07/04/2008 8:39 AM CDT MAMMO DUCTOGRAM SINGLE RT Routine 07/04/2008 8:37 AM CDT documented in this encounter Results * PATHOLOGY (07/04/2008 10:45 AM CDT) FINAL REPORT [facility] [address], [place] [address] Patient: DAYANARA CHAO : 1960 Procedure Date: 07/04/2008 Accession Date: 07/04/2008 Case No: [id number] Ordering Dr: SRIKANTH MOELLER Case types AW, BW, FW, NW and SH are performed by [place], [place] SURGICAL PATHOLOGY & NON-GYNECOLOGIC CYTOPATHOLOGY REPORT DIAGNOSIS BREAST, RIGHT, DUCT INCISION: - INTRADUCTAL PAPILLOMA. - ECTATIC DUCTS. - FIBROCYSTIC CHANGES. BREAST, LEFT, DUCT INCISION: - INTRADUCTAL PAPILLOMA. - DUCTAL ECTASIA. - FIBROCYSTIC CHANGES. Specimen Description: (1) Right duct incision, stitch nipple end; (2) left duct incision, stitch nipple end. Operative Procedure: Right and left nipple duct exploration. Patient Information/History/Di agnosis: Duct ectasia bilaterally. Gross: Two containers are received labeled Dayanara Chao. Received in the first container, additionally labeled right duct incision, stitch nipple end, are eleven irregular fragments of pink-medina dusky tissue ranging from 0.8 to 2.4 cm in greatest dimension. The tissue is 4 x 3 x 0.8 cm in aggregate. The largest piece of tissue has a stitch at one tip. The stitch tip is marked with blue ink. The remaining surfaces are marked with black ink. Due to the fragmented nature of the specimen, the true margins cannot be determined. The largest piece of tissue is serially sectioned and entirely submitted in cassette A1. The remaining irregular fragments are entirely submitted in cassettes A2 and A3. Received in the second container, additionally labeled left duct incision, stitch nipple end, are eleven irregular fragments of pink-medina tissue ranging from 0.7 to 1.8 cm in greatest dimension. One piece of tissue has a stitch indicating the nipple end. The remaining fragments have no orientation. The tissue is 4 x 3.6 x 1.2 cm in aggregate. The stitched edge of the oriented piece of tissue is marked with blue ink. The remaining surfaces are marked with black ink. The sutured piece of tissue is serially sectioned to include both inked surfaces. This piece is tissue is entirely submitted in cassette B1. The remaining irregular fragments are submitted in cassettes B2 and B3. BAHMAN/FLORENCE 07.05.2008 05:59 am Microscopic: Received are slides labeled [id number], Dayanara Chao. Sections of right duct incision identify dilated lactiferous ducts. An intraductal papilloma is present, characterized by fibrovascular cores, surfaced by a double layer of epithelium. Apocrine metaplasia is associated. Adjacent breast tissue is remarkable for fibrocystic changes that include stromal fibrosis, additional ectatic ducts, apocrine metaplasia, and focally, sclerosing adenosis. There is also florid intraductal hyperplasia without atypia. There are focal sclerotic changes that suggest an early radial scar. This process is contained within the excisional material. Minute microcalcifications are identified in the foci of adenosis. Sections of left duct also identify ectatic lactiferous ducts. Ducts contain inspissated secretions. An intraductal papilloma is also noted, characterized by fibrovascular core surfaced by a double layer of epithelium. Apocrine metaplasia is associated, as are mild proliferative epithelial changes. Adjacent breast tissue is remarkable for fibrocystic changes that include stromal fibrosis, cystically-dilated ducts, apocrine metaplasia, and sclerosing adenosis. There is also moderate to florid intraductal hyperplasia without atypia. Some ectatic ducts are surrounded by sheets of foamy histocytes and infiltrates of predominantly chronic inflammatory cells. Microcalcifications are noted in foci of sclerosing adenosis. COMMENT: Certain proliferative lesions identified in breast biopsies are associated with an increased relative risk for the development of invasive carcinoma. According to data at this time, there is a slightly increased risk (1.5- to 2.0-fold), when compared to the risk for women who have not had a breast biopsy, for patients whose biopsies contain: fibroadenoma with complex features; moderate or florid hyperplasia without atypia; sclerosing adenosis; papilloma. Reference: Arch Pathol Lab Med 1998;122:6851-7726. PJC/GABRIELLA 07.08.2008 03:07 pm Staging Form: No. ELECTRONIC SIGNATURE FOR JOE RDZ M.D.- 07/08/08 05:21 pm INTERFACE SYSTEM 07/04/2008 10:4 5 AM CDT us Srikanth Moeller MD PATHOLOGY/CYTOLOGY ORDERABLES Final Result INTERFACE SYSTEM Refer to clinic/hospital department * MAMMO DIGITAL DIAG UNI RIGHT (07/04/2008 8:39 AM CDT) Anatomical Region Laterality Modality Breast Right Other 07/04/2008 8:39 AM CDT Narrative 07/05/2008 10:54 AM CDT [facility] [address] [place], [place] [address] Admit Date: 07/04/2008 DAYANARA CHAO Sex: F Admit Prov: SRIKANTH MOELLER Date: 1960 Primary Care Prov: CMRN: [id number] Room: SURG-A SSN: [id number] IMAGING SERVICES Ordering Prov: SRIKANTH MOELLER Accession Number: [id number] Interpretation RIGHT DIAGNOSTIC DIGITAL MAMMOGRAMS WITH COMPUTER ASSISTED DIAGNOSIS AND DUCTOGRAM, 07/04/2008. History: Bloody nipple discharge. A preprocedure two view mammogram was obtained. There are no comparison films. Breast parenchyma is heterogeneously dense. An inverted nipple is noted. No dominant masses or suspicious calcifications are identified. No areas of distortion are identified. The images were reviewed using the CAD system. A ductogram was attempted. Under sterile technique, a duct in the 1 to 2:00 position of the right nipple was visualized because of a small amount of discharge. It was easily cannulated with a ductogram catheter. It was taped in place and several attempts were made to inject a small amount of contrast with methylene blue. Each time contrast was injected, the catheter slipped out of the duct. Because of the inverted nipple, the catheter would not stay within the duct even when it was taped in once the patient sat up. A two view mammogram was obtained after attempts to inject contrast and none is seen. Patient tolerated the procedure well nonetheless and was sent to the Operating Room for Dr. Moeller. Impression: Discharge easily identified from a duct in the 1 to 2:00 position of the right breast and easily cannulated but sufficient amount of contrast for imaging could not be injected. Patient tolerated procedure well and sent to the Operating Room for Dr. Moeller. Overall assessment: BIRADS category 2 - Benign findings Assessment BIRADS: 2-Benign finding Recommendation: Normal interval follow-up Dictated by: DAYANARA BYERS Electronically signed by: DAYANARA BYERS 07/05/2008 10:53 Transcribed: 07/04/2008 22:17 AMK Procedure Note Dayanara Byers - 07/05/2008 [facility] [address] [place], [place] [address] Admit Date: 07/04/2008 DAYANARA CHAO Sex: F Admit Prov: SRIKANTH MOELLER Date: 1960 Primary Care Prov: CMRN: [id number] Room: SURG-A SSN: [id number] IMAGING SERVICES Ordering Prov: SRIKANTH MOELLER Interpretation RIGHT DIAGNOSTIC DIGITAL MAMMOGRAMS WITH COMPUTER ASSISTED DIAGNOSISAND DUCTOGRAM, 07/04/2008. History: Bloody nipple discharge. A preprocedure two view mammogram was obtained. There are nocomparison films. Breast parenchyma is heterogeneously dense. An inverted nipple isnoted. No dominant masses or suspicious calcifications are identified. No areasof distortion are identified. The images were reviewed using the [employer]. A ductogram was attempted. Under sterile technique, a duct in the 1to 2:00 position of the right nipple was visualized because of a small amountof discharge. It was easily cannulated with a ductogram catheter. It wastaped in place and several attempts were made to inject a small amount of contrast with methylene blue. Each time contrast was injected, thecatheter slipped out of the duct. Because of the inverted nipple, the catheterwould not stay within the duct even when it was taped in once the patientsat up. A two view mammogram was obtained after attempts to inject contrastand none is seen. Patient tolerated the procedure well nonetheless andwas sent to the Operating Room for Dr. Moeller. Impression: Discharge easily identified from a duct in the 1 to 2:00 position ofthe right breast and easily cannulated but sufficient amount of contrastfor imaging could not be injected. Patient tolerated procedure well and sent to the Operating Room forDr. Moeller. Overall assessment: BIRADS category 2 - Benign findings Assessment BIRADS: 2-Benign finding Recommendation: Normal interval follow-up Dictated by: DAYANARA BYERS Electronically signed by: DAYANARA BYERS 07/05/2008 10:53 Transcribed: 07/04/2008 22:17 AMK us Srikanth Moeller MD MAMMO ORDERABLES Final Result * XR CONSULTATION (07/04/2008 8:39 AM CDT) 07/04/2008 8:39 AM CDT Narrative INTERFACE SYSTEM - 07/17/2008 4:55 PM CDT [facility] [address] [place], [place] [address] Admit Date: 07/04/2008 DAYANARA CHAO Sex: F Admit Prov: SRIKANTH MOELLER Date: 1960 Primary Care Prov: CMRN: [id number] Room: SURG-A SSN: [id number] [place] [address] IMAGING SERVICES Ordering Prov: SRIKANTH MOELLER Accession Number: [id number] Addendum Pathology indicates an intraductal papilloma with ectatic ducts and fibrocystic changes on the right. Similar findings were found on the left. Patient is already under the care of Dr. Moeller. Recommend routine followup. Imaging findings are not contributory. Dictated by: DAYANARA BYERS Electronically signed by: DAYANARA BYERS 07/17/2008 16:54 Transcribed: 07/15/2008 23:31 AMK Interpretation RIGHT DIAGNOSTIC DIGITAL MAMMOGRAMS WITH COMPUTER ASSISTED DIAGNOSIS AND DUCTOGRAM, 07/04/2008. History: Bloody nipple discharge. A preprocedure two view mammogram was obtained. There are no comparison films. Breast parenchyma is heterogeneously dense. An inverted nipple is noted. No dominant masses or suspicious calcifications are identified. No areas of distortion are identified. The images were reviewed using the CAD system. A ductogram was attempted. Under sterile technique, a duct in the 1 to 2:00 position of the right nipple was visualized because of a small amount of discharge. It was easily cannulated with a ductogram catheter. It was taped in place and several attempts were made to inject a small amount of contrast with methylene blue. Each time contrast was injected, the catheter slipped out of the duct. Because of the inverted nipple, the catheter would not stay within the duct even when it was taped in once the patient sat up. A two view mammogram was obtained after attempts to inject contrast and none is seen. Patient tolerated the procedure well nonetheless and was sent to the Operating Room for Dr. Moeller. Impression: Discharge easily identified from a duct in the 1 to 2:00 position of the right breast and easily cannulated but sufficient amount of contrast for imaging could not be injected. Patient tolerated procedure well and sent to the Operating Room for Dr. Moeller. Overall assessment: BIRADS category 2 - Benign findings Report revised on 07/17/2008 4:54:30 PM by DAYANARA BYERS Dictated by: DAYANARA BYERS Electronically signed by: DAYANARA BYERS 07/05/2008 10:53 Transcribed: 07/04/2008 22:17 AMK Procedure Note Dayanara Byers - 07/17/2008 [id number] [place], [place] [address] Admit Date: 07/04/2008 DAYANARA CHAO Sex: F Admit Prov: SRIKANTH MOELLER Date: 1960 Primary Care Prov: CMRN: [id number] Room: SURG-A SSN: [id number] IMAGING SERVICES Ordering Prov: SRIKANHT MOELLER Addendum Pathology indicates an intraductal papilloma with ectatic ducts and fibrocystic changes on the right. Similar findings were found on theleft. Patient is already under the care of Dr. Moeller. Recommend routine followup. Imaging findings are not contributory. Dictated by: DAYANARA BYERS Electronically signed by: DAYANARA BYERS 07/17/2008 16:54 Transcribed: 07/15/2008 23:31 AMK Interpretation RIGHT DIAGNOSTIC DIGITAL MAMMOGRAMS WITH COMPUTER ASSISTED DIAGNOSISAND DUCTOGRAM, 07/04/2008. History: Bloody nipple discharge. A preprocedure two view mammogram was obtained. There are nocomparison films. Breast parenchyma is heterogeneously dense. An inverted nipple isnoted. No dominant masses or suspicious calcifications are identified. No areasof distortion are identified. The images were reviewed using the [employer]. A ductogram was attempted. Under sterile technique, a duct in the 1to 2:00 position of the right nipple was visualized because of a small amountof discharge. It was easily cannulated with a ductogram catheter. It wastaped in place and several attempts were made to inject a small amount of contrast with methylene blue. Each time contrast was injected, thecatheter slipped out of the duct. Because of the inverted nipple, the catheterwould not stay within the duct even when it was taped in once the patientsat up. A two view mammogram was obtained after attempts to inject contrastand none is seen. Patient tolerated the procedure well nonetheless andwas sent to the Operating Room for Dr. Moeller. Impression: Discharge easily identified from a duct in the 1 to 2:00 position ofthe right breast and easily cannulated but sufficient amount of contrastfor imaging could not be injected. Patient tolerated procedure well and sent to the Operating Room forDr. Moeller. Overall assessment: BIRADS category 2 - Benign findings Report revised on 07/17/2008 4:54:30 PM by DAYANARA BYERS Dictated by: DAYANARA BYERS Electronically signed by: DAYANARA BYERS 07/05/2008 10:53 Transcribed: 07/04/2008 22:17 AMK us Srikanth Moeller MD DIAGNOSTIC IMAGING ORDERABLES Edited INTERFACE SYSTEM Refer to clinic/hospital department * MAMMO DUCTOGRAM SINGLE RT (07/04/2008 8:37 AM CDT) Anatomical Region Laterality Modality Breast Right Other 07/04/2008 8:37 AM CDT Narrative 07/05/2008 10:54 AM CDT [facility] [address], [place] [address] Admit Date: 07/04/2008 DAYANARA CHAO Sex: F Admit Prov: SRIKANTH MOELLER Date: 1960 Primary Care Prov: CMRN: [id number] Room: SURG-A SSN: [id number] IMAGING SERVICES Ordering Prov: SRIKANTH MOELLER Accession Number: [id number] Interpretation RIGHT DIAGNOSTIC DIGITAL MAMMOGRAMS WITH COMPUTER ASSISTED DIAGNOSIS AND DUCTOGRAM, 07/04/2008. History: Bloody nipple discharge. A preprocedure two view mammogram was obtained. There are no comparison films. Breast parenchyma is heterogeneously dense. An inverted nipple is noted. No dominant masses or suspicious calcifications are identified. No areas of distortion are identified. The images were reviewed using the CAD system. A ductogram was attempted. Under sterile technique, a duct in the 1 to 2:00 position of the right nipple was visualized because of a small amount of discharge. It was easily cannulated with a ductogram catheter. It was taped in place and several attempts were made to inject a small amount of contrast with methylene blue. Each time contrast was injected, the catheter slipped out of the duct. Because of the inverted nipple, the catheter would not stay within the duct even when it was taped in once the patient sat up. A two view mammogram was obtained after attempts to inject contrast and none is seen. Patient tolerated the procedure well nonetheless and was sent to the Operating Room for Dr. Moeller. Impression: Discharge easily identified from a duct in the 1 to 2:00 position of the right breast and easily cannulated but sufficient amount of contrast for imaging could not be injected. Patient tolerated procedure well and sent to the Operating Room for Dr. Moeller. Overall assessment: BIRADS category 2 - Benign findings Dictated by: DAYANARA BYERS Electronically signed by: DAYANARA BYERS 07/05/2008 10:53 Transcribed: 07/04/2008 22:17 AMK Procedure Note Dayanara Byers - 07/05/2008 [id number] [place], [place] [address] Admit Date: 07/04/2008 DAYANARA CHAO Sex: F Admit Prov: SRIKANTH MOELLER Date: 1960 Primary Care Prov: CMRN: [id number] Room: SURG-A SSN: [id number] IMAGING SERVICES Ordering Prov: SRIKANTH MOELLER Interpretation RIGHT DIAGNOSTIC DIGITAL MAMMOGRAMS WITH COMPUTER ASSISTED DIAGNOSISAND DUCTOGRAM, 07/04/2008. History: Bloody nipple discharge. A preprocedure two view mammogram was obtained. There are nocomparison films. Breast parenchyma is heterogeneously dense. An inverted nipple isnoted. No dominant masses or suspicious calcifications are identified. No areasof distortion are identified. The images were reviewed using the [employer]. A ductogram was attempted. Under sterile technique, a duct in the 1to 2:00 position of the right nipple was visualized because of a small amountof discharge. It was easily cannulated with a ductogram catheter. It wastaped in place and several attempts were made to inject a small amount of contrast with methylene blue. Each time contrast was injected, thecatheter slipped out of the duct. Because of the inverted nipple, the catheterwould not stay within the duct even when it was taped in once the patientsat up. A two view mammogram was obtained after attempts to inject contrastand none is seen. Patient tolerated the procedure well nonetheless andwas sent to the Operating Room for Dr. Moeller. Impression: Discharge easily identified from a duct in the 1 to 2:00 position ofthe right breast and easily cannulated but sufficient amount of contrastfor imaging could not be injected. Patient tolerated procedure well and sent to the Operating Room forDr. Moeller. Overall assessment: BIRADS category 2 - Benign findings Dictated by: DAYANARA BYERS Electronically signed by: DAYANARA BYERS 07/05/2008 10:53 Transcribed: 07/04/2008 22:17 AMK us Srikanth Moeller MD MAMMO ORDERABLES Final Result documented in this encounter Visit Diagnoses Not on filedocumented in this encounter Care Teams Web Production Manager Relationship Specialty Start Date End Date Cody Gómez MD [address] [place] [phone] PCP - General 06/20/08 documented as of this encounter
--- OUTSIDE RECORDS SUMMARY | 2025-02-04 09:24 | XMS_ITS | Clinical Summary ---
Author Organization [facility] Address [address] [place] [address] Care Team Providers Care Hook And Eye Attacher Name Role Phone Unavailable Primary Care Provider Unavailabl e Social History Tobacco Use Types Packs/Day Years Used Date Smoking Tobacco: Never Assessed Comments Unknown Sex and Gender Information Value Date Recorded Sex Assigned at Not on file Legal Sex Female 4:56 PM CDT Gender Identity Not on file Sexual Orientation Not on file Last Filed Vital Signs Vital Sign Reading Time Taken Comments Blood Pressure 148/70 11/23/2013 8:47 AM CDT Pulse - - Temperature - - Respiratory Rate - - Oxygen Saturation - - Inhaled Oxygen Concentration - - Weight 105.7 kg (233 lb) 11/23/2013 8:47 AM CDT Height 168.9 cm (5' 6.5) 11/23/2013 8:47 AM CDT Body Mass Index 37.04 11/23/2013 8:47 AM CDT Plan of Treatment Health Maintenance Due Date Last Done Comments Cervical Cancer Screening Pa p Smear (Age 30 to 64) Every 3 Years 1960 Annual Physical 1963 Hepatitis C 1978 Cervical Cancer Screening Pa p with HPV Testing (Age 30 to 64) Every 5 Years 1990 Cervical Cancer Screening wi th HPV 1990 Mammogram Screening 2000 Pneumococcal Vaccine: 50+ Years (1 of 1 - PCV) 2010 Zoster Vaccines (1 of 2) 2010 Colorectal Cancer Screening Colonoscopy (10 Years) 04/25/2016 04/25/2006 DTaP, Tdap and Td Vaccines ( 2 - Td or Tdap) 01/25/2022 01/26/2012 COVID-19 Vaccine ( - 2023-2 5 season) 2024 Influenza Adult (#1) 2025 01/31/2013, 01/26/2012 RSV Immunization or 60+ Years (1 - 1-dose 75+ series) 2035 Meningococcal B Vaccine Aged Out No l onger eligible based on patient's age to complete this topic Meningococcal Vaccine Aged Out No chandra carole eligible based on patient's age to complete this topic RSV Immunizations Under 20 Months Aged Out No longer eligible b ased on patient's age to complete this topic Procedures Procedure Name Priority Date/Time Associated Diagnosis Comments COLONOSCOPY Routine 04/25/2006 12:00 AM SORTER LAUNDRY ARTICLES from Last 3 Months or Most Recently Relevant to Health Maintenance Results * Colonoscopy (04/25/2006 12:00 AM SORTER LAUNDRY ARTICLES) 04/25/2006 04/25/2006 Narrative TOUCHWORKS TO EPIC CONVERSION - 04/25/2006 12:00 AM SORTER LAUNDRY ARTICLES Documented hx of procedure Procedure Note , Generic Conversion, - 07/13/2018 Documented hx of procedure us Generic Conversion Md RAMÍREZ [facility] PROCEDURE ORDERABLES Final Result TOUCHWORKS TO EPIC CONVERSION from Last 3 Months or Most Recently Relevant to Health Maintenance
--- OUTSIDE RECORDS SUMMARY | 2025-02-04 09:24 | XMS_ITS | Clinical Summary ---
Author Organization [facility] [address] [facility] Address [address] [place] [address] Care Team Providers Care Specialist [employer] Name Role Phone Chloe Dinh Primary Care Provider [phone] Compa Jimenez MD Unavailable [phone] Allergies Active Allergy Reactions Criticality Noted Date Comments Adhesive Blisters High 06/04/2019 Diclofenac Swelling Medium 10/25/2023 Medications cholecalciferol (VITAMIN D-3) 1,000 unit capsuleIndications :Low vitamin D level Take 1 capsule (1,000 Units total) by mouth daily 90 capsule 3 3 Active cranberry conc-ascorbic acid 4,200-20 mg capsuleIndications :Takes dietary supplements Take 1 capsule by mouth daily 90 capsule 11 3 Active multivitamin with minerals capsuleIndications :Takes dietary supplements Take 1 capsule by mouth daily 90 capsule 11 3 Active biotin 1 mg capsule Take by mouth Active vitamin B complex (B COMPLEX-VITAMIN B12 ORAL) Take by mouth Active carvediloL (COREG) 12.5 mg tabletIndications: Essential hypertension TAKE ONE-HALF (1/2) TABLET TWICE A DAY WITH MEALS 180 tablet 3 4 Active aspirin (Adult Low Dose Aspirin) 81 mg enteric coated tabletIndications: Essential hypertension Take 1 tablet (81 mg total) by mouth daily 4 Active losartan (COZAAR) 100 mg tabletIndications: Essential hypertension TAKE 1 TABLET DAILY 90 tablet 3 4 Active Zepbound 10 mg/0.5 mL pen injector INJECT 0.5 ML (10 MG) UNDER THE SKIN EVERY 7 DAYS 6 mL 3 5 Active escitalopram (LEXAPRO) 20 mg tablet Take 1 tablet (20 mg total) by mouth daily 90 tablet 1 5 Active rosuvastatin (CRESTOR) 40 mg tabletIndications: Mixed hyperlipidemia TAKE 1 TABLET DAILY 90 tablet 3 5 Active fexofenadine (Fior Allergy) 180 mg tablet Take 1 tablet (180 mg total) by mouth daily 30 tablet 5 03/01/20 25 Active hydroCHLOROthiazid e (HYDRODIURIL) 25 mg tabletIndications: Essential hypertension TAKE 1 TABLET DAILY 90 tablet 3 5 01/31/20 25 Discontin ued(Thera py completed ) Active Problems Patient Care Coordination No te Formatting of this note migh t be different from the original. CAD for BIC Problem Noted Date Diagnosed Date Morbid obesity 09/17/2024 Moderate episode of recurrent major depressive d isorder 09/17/2024 Chronic pain of both feet 09/17/2024 Annual physical exam 09/17/2024 SOB (shortness of breath) 02/26/2024 Assessment & Plan (02/26/2024 11:55 PM RESERVE OFFICER): Patient has noted increased SOB Has had recent PFTs and they were normal EKG in the office today revealed PVCs, possible history of infarct (patient doesn't remember any history) Recommend referral to Cardio for evaluation. If she would have acute symptoms she is to go to the ER. Encouraged weight loss --- She is interested in GLP. Chronic pain of right ankle 02/06/2024 Assessment & Plan (02/06/2024 5:38 AM CDT): Persistent right ankle pain. She has been seeing the light rail signal technician on and off and is not seeing resolution after steroid injection. Refer to orthopedic ankle foot for further evaluation and recommendations. Calcaneal spur of right foot 11/20/2023 Assessment & Plan (11/20/2023 2:56 PM CDT): Right lower leg is still having 1+ edema. Venous Doppler was negative she is having some pain in the heel and there is a calcaneal spur. Will go ahead and refer her to ENT. Will check an echo. She has not responded to water pill at this point so will continue to monitor and await these further workup results. Would recommend support stockings and keep leg elevated. If she would notice any redness of the skin increased swelling fever chills or sweats she is to call immediately. Swelling of left lower extremity 11/08/2023 Assessment & Plan (11/08/2023 11:00 AM CDT): Patient has noted increased pain and swelling. Pain is in multiple joints that seems to move around her body. I will be present for a week to 10 days and then moved to a new area. She is also noticed swelling in the lower extremities. This only goes up about a 3rd of the deras not even 1+ but has been more prominent. She denies any other accompanying symptoms other than fatigue. Denies chest pain shortness of breath appetite changes blood in urine blood in stool or weight changes. Will check labs to rule out inflammatory cause and heart failure. Will try Lasix 20 mg daily for a week. Continue antidepressants. Currently on Lexapro, could consider transition to Cymbalta. Follow-up pending labs and Lasix use Arthralgia 11/08/2023 Assessment & Plan (11/08/2023 11:00 AM CDT): Patient has noted increased pain and swelling. Pain is in multiple joints that seems to move around her body. I will be present for a week to 10 days and then moved to a new area. She is also noticed swelling in the lower extremities. This only goes up about a 3rd of the deras not even 1+ but has been more prominent. She denies any other accompanying symptoms other than fatigue. Denies chest pain shortness of breath appetite changes blood in urine blood in stool or weight changes. Will check labs to rule out inflammatory cause and heart failure. Will try Lasix 20 mg daily for a week. Continue antidepressants. Currently on Lexapro, could consider transition to Cymbalta. Follow-up pending labs and Lasix use Anxiety 11/08/2023 Assessment & Plan (02/06/2024 5:37 AM CDT): Patient saw improvement with the Lexapro 20 but now that some of her stress has decreased she feels like it is too much. Encouraged to take half of a 20 mg tablet for a 10 mg dose daily. Reassess in 2-3 months or sooner for any other problems or concerns Assessment & Plan (11/08/2023 11:00 AM CDT): Continue Lexapro 20. Arthralgia of both knees 06/30/2023 Assessment & Plan (06/30/2023 10:28 PM RESERVE OFFICER): Patient has noted increased pain in her joints especially knees. Will check TAZ as well as vitamin-D and if symptoms persist may consider x-rays. Intraductal papilloma 03/10/2023 Factor V Leiden 01/31/2023 Chronic pain of left knee 09/27/2022 Assessment & Plan (09/27/2022 2:27 PM CDT): Patient has noticed pain in the left knee. At times feels like it almost freeze and she can extend it. No known injury. Will start with an x-ray. Pending those results will consider ortho verses physical therapy. She can ice the area as well as starting NSAID. Follow-up pending results BMI 37.0-37.9, adult 06/28/2022 Assessment & Plan (09/06/2024 8:14 AM CDT): Discussed the patient's BMI. The BMI is above average. BMI management plan is completed. BMI Follow-up includes: nutrition counseling, exercise counseling and education provided. Assessment & Plan (06/28/2022 2:24 PM RESERVE OFFICER): Discussed the patient's BMI. The BMI is above average. BMI management plan is completed. BMI Follow-up includes: nutrition counseling, exercise counseling and education provided. Coronary artery calcification seen on CT scan Pulmonary nodule 10/26/2021 Assessment & Plan (01/25/2024 11:18 AM CDT): The patient's pulmonary nodule has been stable for two years. Assessment & Plan (10/26/2023 1:00 PM CDT): I have ordered another CT scan for three months. Which will be December of 2023. Assessment & Plan (08/09/2023 12:44 PM CDT): I have ordered a CT scan of the chest without contrast to re-evaluate the pulmonary nodules. Assessment & Plan (10/26/2021 8:41 PM CDT): Patient will be due for repeat imagin in November. CT of the chest place to follow-up a 0.9 cm lung nodule in the right lower lobe. Stress 08/02/2021 Assessment & Plan (10/26/2021 8:40 PM CDT): Stable. Continue Lexapro 10 mg. Assessment & Plan (08/02/2021 7:34 PM CDT): Symptoms have improved with Lexapro 10 mg. Continue the same dose as no side effects. She is to call if her symptoms exacerbate will continue to monitor closely History of cigarette smoking 07/04/2021 Assessment & Plan (01/30/2025 11:02 AM CDT): The patient did not complete the low-dose screening CAT scan. I have put in another order for the patient to complete a low-dose screening CAT scan. I will call her with the results. Assessment & Plan (01/25/2024 11:18 AM CDT): The patient did stop smoking November of 2011. The patient does have a 31 pack year history. I have ordered another CT scan for January of 2025. Assessment & Plan (08/09/2023 12:43 PM CDT): The patient will need another low-dose screening CT scan one year after her last CT scan. Assessment & Plan (07/04/2021 5:25 PM RESERVE OFFICER): Patient has stop smoking. Continue annual low-dose CT. It is currently due at [facility]. BRANDEN (obstructive sleep apnea) 12/29/2020 Assessment & Plan (01/30/2025 11:01 AM CDT): The patient continue to wear CPAP at auto titrating range of 5-20 cm water pressure while sleeping. I have recommended [id number] allergy medication to take at night to help with the congestion. I have sent a Fior to the pharmacy. Assessment & Plan (06/03/2024 8:37 PM RESERVE OFFICER): Continue with CPAP Assessment & Plan (02/27/2024 12:05 AM RESERVE OFFICER): Continue per Pulmonary with CPAP Assessment & Plan (01/25/2024 11:17 AM CDT): The patient continue to wear CPAP at auto titrating range of 5-20 cm water pressure while sleeping. Her DME is [employer] Assessment & Plan (10/26/2023 1:00 PM CDT): Patient continue to wear her CPAP auto titrating range of 5-20 cm water pressure while sleeping. Her DME is [employer]. Assessment & Plan (08/09/2023 12:39 PM CDT): Due to the patient having the allergic reaction due to the EKG PadI will order the patient an auto titrating CPAP set at a range of 5-20 cm of water pressure. The patient's DME will be [employer]. Assessment & Plan (06/29/2023 10:31 AM RESERVE OFFICER): She was diagnosed with BRANDEN long ago and has a very old CPAP unit at home that she never uses. She is snoring and has daytime hypersomnia and would like to be re-evaluated and re-treated. I will order a nocturnal polysomnogram with a split night protocol if necessary and no MSLT. Assessment & Plan (07/04/2022 11:09 PM CDT): Continue with CPAP. Follow-up with pulmonology/sleep Assessment & Plan (01/15/2021 11:11 AM CDT): The patient was diagnosed with obstructive sleep apnea in the past and would like to be re-evaluated and then treated because she is having daytime hypersomnia and is still snoring. I will order a home sleep test per her request and she will follow-up here in 3 months. Assessment & Plan (12/29/2020 6:51 PM CDT): History of BRANDEN --- Hasn't seen providers in years. Needs new machine and supplies. Will refer to Sleep Medicine. Mastodynia 05/15/2020 Assessment & Plan (05/15/2020 10:58 AM RESERVE OFFICER): This is a significant, separately identifiable problem that was evaluated and managed on the same day as the wellness exam Pain is with the hanging of the large breasts. See Large breasts for referral Other fatigue 05/15/2020 Assessment & Plan (06/30/2023 10:28 PM RESERVE OFFICER): Probably multifactorial. Check labs and followup to re-evaluate Assessment & Plan (05/15/2020 10:56 AM RESERVE OFFICER): Probably multifactorial. Check labs and followup to re-evaluate Dyspnea on exertion 05/15/2020 Assessment & Plan (01/30/2025 11:01 AM CDT): The patient does have albuterol to use if needed. Assessment & Plan (01/25/2024 11:17 AM CDT): The patient continue to use albuterol as needed up to 4 times a day for shortness of breath. Assessment & Plan (08/09/2023 12:43 PM CDT): The patient was not found to have Chronic obstructive pulmonary disease on her last PFTs. The patient will continue with albuterol as needed up to 4 times a day for shortness of breath Pharyngitis 03/13/2020 Assessment & Plan (03/13/2020 9:51 AM RESERVE OFFICER): Will order covid 19 testing for patient and . Will send order to [facility] at her request, will notify of results as available. She was advised to quarantine and treat as presumptive positive at this time given symptoms. She was advised tylenol q6h prn fever/chills, to increase fluids, rest. She was advised to mask and report to ER if worsening. Large breasts 07/08/2019 Assessment & Plan (05/15/2020 10:56 AM RESERVE OFFICER): This is a significant, separately identifiable problem that was evaluated and managed on the same day as the wellness exam Patient would like to discuss options regarding reduction. Persistent back/chest wall pain. Refer to Plastics. Stressed must get Mamm first. Assessment & Plan (07/08/2019 9:21 PM CDT): Encouraged good fitting bras with thick straps. Encouraged weight loss. She may consider consult for reduction. Prediabetes 07/08/2019 Assessment & Plan (02/27/2024 12:05 AM RESERVE OFFICER): Pre-diabetes/hyperglycemia is a precursor to Dm. Stressed importance of working on diet (decrease your simple sugars and one carbohydrate with each meal) and increase you exercise to achieve weight loss and this will help prevent you from progressing to diabetes. Assessment & Plan (07/04/2021 5:25 PM RESERVE OFFICER): Pre-diabetes/hyperglycemia is a precursor to Dm. Stressed importance of working on diet (decrease your simple sugars and one carbohydrate with each meal) and increase you exercise to achieve weight loss and this will help prevent you from progressing to diabetes. Assessment & Plan (05/15/2020 10:54 AM RESERVE OFFICER): Pre-diabetes is a precursor to Dm. Stressed importance of working on diet (decrease your simple sugars and one carbohydrate with each meal) and increase you exercise to achieve weight loss and this will help prevent you from progressing to diabetes. Assessment & Plan (02/10/2020 9:35 PM CDT): Pre-diabetes is a precursor to Dm. Stressed importance of working on diet (decrease your simple sugars and one carbohydrate with each meal) and increase you exercise to achieve weight loss and this will help prevent you from progressing to diabetes. Assessment & Plan (07/08/2019 9:23 PM CDT): Pre-diabetes is a precursor to Dm. Stressed importance of working on diet (decrease your simple sugars and one carbohydrate with each meal) and increase you exercise to achieve weight loss and this will help prevent you from progressing to diabetes. Low vitamin D level 07/08/2019 Assessment & Plan (06/30/2023 10:28 PM RESERVE OFFICER): Supplement Assessment & Plan (07/04/2022 11:09 PM CDT): Supplement Assessment & Plan (05/15/2020 10:54 AM RESERVE OFFICER): supplement Assessment & Plan (02/10/2020 9:36 PM CDT): supplement Assessment & Plan (07/08/2019 9:26 PM CDT): Your vitamin D is low. The only natural way to get Vitamin D is sunlight and we just aren't in the sun enough. Start over the counter Vitamin D3 5,000IU one daily and take it with a meal for best absorption. Abnormal EKG 06/11/2019 Breast cancer screening by mammogram 05/26/2019 Assessment & Plan (06/30/2023 10:28 PM RESERVE OFFICER): Mammogram order provided Assessment & Plan (07/04/2022 11:07 PM CDT): Mammogram order provided Assessment & Plan (07/04/2021 5:24 PM RESERVE OFFICER): Mammogram order provided Assessment & Plan (05/15/2020 10:54 AM RESERVE OFFICER): Mamm order provided Assessment & Plan (05/26/2019 5:12 PM RESERVE OFFICER): Mammogram order provided Menopause 05/26/2019 Assessment & Plan (07/04/2022 11:07 PM CDT): Check DEXA Assessment & Plan (05/26/2019 5:11 PM RESERVE OFFICER): Check DXA Lower leg edema 05/26/2019 Assessment & Plan (11/20/2023 2:56 PM CDT): Right lower leg is still having 1+ edema. Venous Doppler was negative she is having some pain in the heel and there is a calcaneal spur. Will go ahead and refer her to ENT. Will check an echo. She has not responded to water pill at this point so will continue to monitor and await these further workup results. Would recommend support stockings and keep leg elevated. If she would notice any redness of the skin increased swelling fever chills or sweats she is to call immediately. Assessment & Plan (05/26/2019 5:11 PM RESERVE OFFICER): This is a significant, separately identifiable problem that was evaluated and managed on the same day as the wellness exam Check labs. Continue diuretic. DASH diet. Compression stockings. If persists, may consider cardiac workup. Osteoarthritis 05/26/2019 Assessment & Plan (05/15/2020 10:53 AM RESERVE OFFICER): Stable with tylenol. Doesn't tolerate diclofenac Assessment & Plan (02/10/2020 9:35 PM CDT): Continue prn NSAIDs. Monitor for welling Assessment & Plan (05/26/2019 5:20 PM RESERVE OFFICER): Continue NSAIDs prn JOSÉ MIGUEL-inhibitor cough 05/08/2019 Assessment & Plan (05/26/2019 5:08 PM RESERVE OFFICER): Unable to tolerate JOSÉ MIGUEL Essential hypertension 05/08/2019 Assessment & Plan (06/03/2024 8:37 PM RESERVE OFFICER): Bp is stable/in acceptable range for any co-morbidities. Encouraged to limit sodium intake and exercise for weight control. Continue losartan 100 Assessment & Plan (02/27/2024 12:05 AM RESERVE OFFICER): Bp is stable/in acceptable range for any co-morbidities. Encouraged to limit sodium intake and exercise for weight control. Continue losartan 100 mg Assessment & Plan (02/06/2024 5:38 AM CDT): Bp is stable/in acceptable range for any co-morbidities. Encouraged to limit sodium intake and exercise for weight control. Continue carvedilol 12.5 b.i.d., losartan 100, hydrochlorothiazide 25. Encouraged her to call with home readings to make sure we are dosing correctly Assessment & Plan (06/30/2023 10:27 PM RESERVE OFFICER): Bp is stable/in acceptable range for any co-morbidities. Encouraged to limit sodium intake and exercise for weight control. Continue losartan Coreg and hydrochlorothiazide Assessment & Plan (06/13/2023 12:53 PM RESERVE OFFICER): Bp is stable/in acceptable range for any co-morbidities. Encouraged to limit sodium intake and exercise for weight control. Continue carvedilol 12.5 b.i.d., losartan 100 and hydrochlorothiazide 25 daily Assessment & Plan (09/27/2022 2:26 PM CDT): Bp is stable/in acceptable range for any co-morbidities. Encouraged to limit sodium intake and exercise for weight control. Continue losartan Coreg and hydrochlorothiazide Assessment & Plan (07/04/2022 11:06 PM CDT): Bp is stable/in acceptable range for any co-morbidities. Encouraged to limit sodium intake and exercise for weight control. Continue losartan Coreg get hydrochlorothiazide Assessment & Plan (10/26/2021 8:39 PM CDT): Bp is stable/in acceptable range for any co-morbidities. Encouraged to limit sodium intake and exercise for weight control. Patient feels like she is getting some low readings. Will decreased the carvedilol. Take 12.5 mg tablets taking half a tab b.i.d.. Will reassess blood pressure in the next couple of months. If patient continues to have dizziness she is to follow up immediately. Assessment & Plan (07/04/2021 5:24 PM RESERVE OFFICER): Bp is stable/in acceptable range for any co-morbidities. Encouraged to limit sodium intake and exercise for weight control. Continue new losartan hydrochlorothiazide and Coreg. Assessment & Plan (12/29/2020 6:52 PM CDT): Bp is stable/in acceptable range for any co-morbidities. Encouraged to limit sodium intake and exercise for weight control. Very tightly controlled and systolic is pushing at 100. Continue coreg 12.5 bid HCTZ 25 Losratan 100mg ------cut in half Call in a few weeks with home readings to monitor. Assessment & Plan (05/15/2020 10:52 AM RESERVE OFFICER): Bp is stable/in acceptable range for any co-morbidities. Encouraged to limit sodium intake and exercise for weight control. Assessment & Plan (02/10/2020 9:35 PM CDT): Bp is stable/in acceptable range for any co-morbidities. Encouraged to limit sodium intake and exercise for weight control. Assessment & Plan (07/08/2019 9:16 PM CDT): Bp is stable/in acceptable range for any co-morbidities. Encouraged to limit sodium intake and exercise for weight control. Assessment & Plan (06/17/2019 4:59 PM RESERVE OFFICER): Bp is stable/in acceptable range for any co-morbidities. Encouraged to limit sodium intake and exercise for weight control. Assessment & Plan (05/26/2019 5:08 PM RESERVE OFFICER): Bp is stable/in acceptable range for any co-morbidities. Encouraged to limit sodium intake and exercise for weight control. Continue Losartan and HCTZ Mixed hyperlipidemia 05/08/2019 Assessment & Plan (06/03/2024 8:37 PM RESERVE OFFICER): Encouraged patient to follow low fat/low chol diet like the Mediterranean diet. Increase good fats in the diet. Increase exercise. Monitor labs as needed. Continue Crestor 40 Assessment & Plan (02/27/2024 12:05 AM RESERVE OFFICER): Encouraged patient to follow low fat/low chol diet like the Mediterranean diet. Increase good fats in the diet. Increase exercise. Monitor labs as needed. Continue Crestor 40 Assessment & Plan (11/20/2023 2:57 PM CDT): Encouraged patient to follow low fat/low chol diet like the Mediterranean diet. Increase good fats in the diet. Increase exercise. Monitor labs as needed. Continue Crestor 40 Assessment & Plan (11/08/2023 10:58 AM CDT): Encouraged patient to follow low fat/low chol diet like the Mediterranean diet. Increase good fats in the diet. Increase exercise. Monitor labs as needed. Continue Crestor 40 Assessment & Plan (06/30/2023 10:27 PM RESERVE OFFICER): Encouraged patient to follow low fat/low chol diet like the Mediterranean diet. Increase good fats in the diet. Increase exercise. Monitor labs as needed. Continue Crestor. Assessment & Plan (06/13/2023 12:52 PM RESERVE OFFICER): Encouraged patient to follow low fat/low chol diet like the Mediterranean diet. Increase good fats in the diet. Increase exercise. Monitor labs as needed. Continue Crestor 40 Assessment & Plan (09/27/2022 2:26 PM CDT): Encouraged patient to follow low fat/low chol diet like the Mediterranean diet. Increase good fats in the diet. Increase exercise. Monitor labs as needed. Continue Crestor Assessment & Plan (07/04/2022 11:07 PM CDT): Encouraged patient to follow low fat/low chol diet like the Mediterranean diet. Increase good fats in the diet. Increase exercise. Monitor labs as needed. Continue Crestor Assessment & Plan (10/26/2021 8:39 PM CDT): Encouraged patient to follow low fat/low chol diet like the Mediterranean diet. Increase good fats in the diet. Increase exercise. Monitor labs as needed. Continue Crestor Assessment & Plan (07/04/2021 5:24 PM RESERVE OFFICER): Encouraged patient to follow low fat/low chol diet like the Mediterranean diet. Increase good fats in the diet. Increase exercise. Monitor labs as needed. Continue statin Assessment & Plan (12/29/2020 6:49 PM CDT): Encouraged patient to follow fat/low chol diet like the Mediterranean diet. Increase good fats in the diet. Increase exercise. Monitor labs as needed. Continue crestor Assessment & Plan (05/15/2020 10:53 AM RESERVE OFFICER): Encouraged patient to follow fat/low chol diet like the Mediterranean diet. Increase good fats in the diet. Increase exercise. Monitor labs as needed. Continue statin Assessment & Plan (02/10/2020 9:36 PM CDT): Encouraged patient to follow fat/low chol diet like the Mediterranean diet. Increase good fats in the diet. Increase exercise. Monitor labs as needed. Assessment & Plan (07/08/2019 9:20 PM CDT): Encouraged patient to continue low fat/low chol diet. Continue exercise. Increase good fats in the diet. Monitor labs as needed. D Continue statin Assessment & Plan (05/26/2019 5:11 PM RESERVE OFFICER): This is a significant, separately identifiable problem that was evaluated and managed on the same day as the wellness exam Encouraged patient to continue low fat/low chol diet. Continue exercise. Increase good fats in the diet. Monitor labs as needed. Restart statin. Reviewed risks, benefit, alternatives, side effects and proper use. Resolved Problems Problem Noted Date Diagnosed Date Resolved Date Morbid obesity with BMI of 40.0-44.9, adult 06/03/2024 09/17/2024 Assessment & Plan (06/03/2024 8:37 PM RESERVE OFFICER): Patient continues to do well with the Z bound for weight loss. She is down. Currently tolerating set bound 10 mg. Continues to work hard on increasing activity as tolerated and dietary changes. Will continue with the same dose and follow up in 3-4 months to reassess or sooner for any other problems or concerns Hyperlipidemia 02/06/2024 02/26/2024 Assessment & Plan (02/06/2024 5:39 AM CDT): Encouraged patient to follow low fat/low chol diet like the Mediterranean diet. Increase good fats in the diet. Increase exercise. Monitor labs as needed. Continue Crestor 40 Point of care lipid done in the office today Annual physical exam 06/30/2023 024 Assessment & Plan (06/30/2023 10:29 PM RESERVE OFFICER): Encouraged healthy lifestyle, good nutrition and exercise. Encouraged Calcium and Vitamin D and weight bearing exercise for bone health. Reviewed immunizations Reviewed age appropirate screenings. Morbid obesity with BMI of 40.0-44.9, adult 06/13/2023 06/25/2023 Assessment & Plan (06/13/2023 12:42 PM RESERVE OFFICER): Discussed the patient's BMI. The BMI is above average. BMI management plan is completed. BMI Follow-up includes: nutrition counseling, exercise counseling and education provided. Hypoxemia 06/01/2023 02/26/2024 Pneumonia of left lower lobe due to infectious organism 05/31/2023 02/26/2024 Assessment & Plan (08/09/2023 12:38 PM CDT): The patient pneumonia did clear on the last chest x-ray. Assessment & Plan (06/30/2023 10:27 PM RESERVE OFFICER): Patient has had a left lower pneumonia. Was hospitalized. Chest x-ray did not show much improvement so I started her on Levaquin and Symbicort about a week ago. She is feeling better. She is discontinued the Symbicort. She is seen Dr. Lauren who had her continue with the antibiotic and will plan to repeat a chest x-ray in a couple of weeks. Will defer continued follow-up to him. Assessment & Plan (06/29/2023 10:31 AM RESERVE OFFICER): The patient was treated for a left lower lobe pneumonia 1 month ago. She is off antibiotics. I will repeat chest x-ray in 2 weeks to document resolution of the left lower lobe infiltrate. Assessment & Plan (06/25/2023 11:02 PM RESERVE OFFICER): X-ray still consistent with pneumonia. Was started on Levaquin. Continue with Robitussin or Tessalon Perles and the albuterol p.r.n.. Again discussed adding a steroid oral or inhaled. She is still adamant about not wanting the oral steroid so will start Advair. Take as directed. She is to give an update in a couple of days and or if her O2 sats drop below 88-90 she still needs to be in touch as may need to go to the hospital for oxygen. 6 minute walk today did not qualify for order for oxygen Assessment & Plan (06/13/2023 12:51 PM RESERVE OFFICER): Patient was just hospitalized for sepsis with acute hypoxic respiratory failure secondary to pneumonia. She is completed antibiotics and is still having a cough and congestion. Still feeling fatigued. Had labs done last week and they appeared stable with her CBC and CMP but she is still coughing. Recommend chest x-ray to determine if pneumonia is beginnng to clear or getting worse. Cheratussin to the pharmacy. Followup in 2 weeks or sooner as needed or pending the xray If increased symptoms, O2 sats stay under 90 or fever, chills or sweat she needs to contact the office immediately. Simple chronic bronchitis 05/31/2023 Sepsis with acute hypoxic re spiratory failure without septic shock, due to unspecified organism 05/28/2023 06/30/2023 Assessment & Plan (06/13/2023 12:52 PM RESERVE OFFICER): Patient was just hospitalized for sepsis with acute hypoxic respiratory failure secondary to pneumonia. She is completed antibiotics and is still having a cough and congestion. Still feeling fatigued. Had labs done last week and they appeared stable with her CBC and CMP but she is still coughing. Recommend chest x-ray to determine if pneumonia is beginnng to clear or getting worse. Libbyatussin to the pharmacy. Followup in 2 weeks or sooner as needed or pending the xray If increased symptoms, O2 sats stay under 90 or fever, chills or sweat she needs to contact the office immediately. Diabetes mellitus screening 09/27/2022 06/13/2023 Assessment & Plan (09/27/2022 2:27 PM CDT): Check labs Class 3 severe obesity due t o excess calories without serious comorbidity with body mass index (BMI) of 40.0 to 44.9 in adult 09/15/2022 Assessment & Plan (09/15/2022 1:40 PM CDT): Discussed the patient's BMI. The BMI is above average. BMI management plan is completed. BMI Follow-up includes: nutrition counseling, exercise counseling and education provided. BMI 40.0-44.9, adult 09/15/2022 024 Assessment & Plan (09/15/2022 1:39 PM CDT): Discussed the patient's BMI. The BMI is above average. BMI management plan is completed. BMI Follow-up includes: nutrition counseling, exercise counseling and education provided. History of pneumonia 07/04/2022 Assessment & Plan (07/04/2022 11:10 PM CDT): Recent history of pneumonia. Will recheck x-ray to make sure she has had complete resolution Colon cancer screening 07/04/202206/29 Assessment & Plan (07/04/2022 11:10 PM CDT): Due for screening. Will send Cologuard Morbid obesity 06/28/2022 02/27/2024 Assessment & Plan (02/27/2024 12:07 AM RESERVE OFFICER): Discussed the patient's BMI. The BMI is above average. BMI management plan is completed. BMI Follow-up includes: nutrition counseling, exercise counseling and education provided. Assessment & Plan (01/26/2024 10:21 AM CDT): Discussed the patient's BMI. The BMI is above average. BMI management plan is completed. BMI Follow-up includes: nutrition counseling, exercise counseling and education provided. Assessment & Plan (11/10/2023 1:09 PM CDT): Discussed the patient's BMI. The BMI is above average. BMI management plan is completed. BMI Follow-up includes: nutrition counseling, exercise counseling and education provided. Assessment & Plan (11/08/2023 10:58 AM CDT): Discussed the patient's BMI. The BMI is above average. BMI management plan is completed. BMI Follow-up includes: nutrition counseling, exercise counseling and education provided. Assessment & Plan (06/30/2023 10:28 PM RESERVE OFFICER): Discussed the patient's BMI. The BMI is above average. BMI management plan is completed. BMI Follow-up includes: nutrition counseling, exercise counseling and education provided. Assessment & Plan (06/25/2023 11:02 PM RESERVE OFFICER): Discussed the patient's BMI. The BMI is above average. BMI management plan is completed. BMI Follow-up includes: nutrition counseling, exercise counseling and education provided. Assessment & Plan (07/04/2022 11:09 PM CDT): Discussed the patient's BMI. The BMI is above average. BMI management plan is completed. BMI Follow-up includes: nutrition counseling, exercise counseling and education provided. Patient has an obesity-related condition (not limited to: hypertension, obstructive sleep apnea, osteoarthritis, hyperlipidemia, diabetes, etc.). Therefore, morbid obesity may be documented for patients with a BMI between 35.00-39.99. Lung nodule 10/26/2021 08/09/2023 Overview (10/26/2021): PET scan 09/10/2021 IMPRESSION: 1. No specific abnormal FDG activity of the right lower lobe 0.9 cm nodule although the nodule is below PET resolution. Three-month follow-up chest CT is recommended. Assessment & Plan (10/26/2021 8:41 PM CDT): Patient will be due for repeat imagin in November. CT of the chest place to follow-up a 0.9 cm lung nodule in the right lower lobe. BMI 40.0-44.9, adult 07/15/2021 023 Assessment & Plan (07/15/2021 9:32 AM CDT): Obesity is unchanged. Discussed the patient's BMI. The BMI is above average. BMI management plan is completed. BMI Follow-up includes: nutrition counseling, exercise counseling and education provided. Morbid obesity with BMI of 40.0-44.9, adult 07/15/2021 06/28/2022 Assessment & Plan (10/26/2021 8:39 PM CDT): Discussed the patient's BMI. The BMI is above average. BMI management plan is completed. BMI Follow-up includes: nutrition counseling, exercise counseling and education provided. Assessment & Plan (08/02/2021 7:36 PM CDT): Obesity is improving. Discussed the patient's BMI. The BMI is above average. BMI management plan is completed. BMI Follow-up includes: nutrition counseling, exercise counseling and education provided. Continue My Fitness pal. BMI 40.0-44.9, adult 06/10/2021 022 Assessment & Plan (06/10/2021 11:00 AM RESERVE OFFICER): Obesity is unchanged. Discussed the patient's BMI. The BMI is above average. BMI management plan is completed. BMI Follow-up includes: nutrition counseling, exercise counseling and education provided. Morbid obesity with BMI of 40.0-44.9, adult 06/10/2021 07/15/2021 Assessment & Plan (06/10/2021 11:00 AM RESERVE OFFICER): Obesity is unchanged. Discussed the patient's BMI. The BMI is above average. BMI management plan is completed. BMI Follow-up includes: nutrition counseling, exercise counseling and education provided. BMI 40.0-44.9, adult 12/18/2020 022 Assessment & Plan (12/18/2020 11:25 AM CDT): Obesity is unchanged. Discussed the patient's BMI. The BMI is above average. BMI management plan is completed. BMI Follow-up includes: nutrition counseling, exercise counseling and education provided. Morbid obesity with BMI of 40.0-44.9, adult 12/18/2020 06/10/2021 Assessment & Plan (12/18/2020 11:25 AM CDT): Obesity is unchanged. Discussed the patient's BMI. The BMI is above average. BMI management plan is completed. BMI Follow-up includes: nutrition counseling, exercise counseling and education provided. Obesity (BMI 30-39.9) 05/15/20202020 Assessment & Plan (05/15/2020 9:11 AM RESERVE OFFICER): Obesity is unchanged. Discussed the patient's BMI. The BMI is above average. BMI management plan is completed. BMI Follow-up includes: nutrition counseling, exercise counseling and education provided. BMI 40.0-44.9, adult 05/15/2020 021 Assessment & Plan (05/15/2020 9:11 AM RESERVE OFFICER): Obesity is unchanged. Discussed the patient's BMI. The BMI is above average. BMI management plan is completed. BMI Follow-up includes: nutrition counseling, exercise counseling and education provided. History of smoking 30 or more pack years 05/15/2020 08/09/2023 Assessment & Plan (05/15/2020 10:55 AM RESERVE OFFICER): Check LDCT followup Annual physical exam 05/14/2020 024 Assessment & Plan (07/04/2022 11:09 PM CDT): Encouraged healthy lifestyle, good nutrition and exercise. Encouraged Calcium and Vitamin D and weight bearing exercise for bone health. Reviewed immunizations Reviewed age appropirate screenings. Assessment & Plan (07/04/2021 5:25 PM RESERVE OFFICER): Encouraged healthy lifestyle, good nutrition and exercise. Encouraged Calcium and Vitamin D and weight bearing exercise for bone health. Reviewed immunizations Reviewed age appropirate screenings. Assessment & Plan (05/15/2020 10:55 AM RESERVE OFFICER): Encouraged healthy lifestyle, good nutrition and exercise. Encouraged Calcium and Vitamin D and weight bearing exercise for bone health. Reviewed immunizations Reviewed age appropirate screenings. Otalgia, right 03/13/2020 05/14/2020 Assessment & Plan (03/13/2020 9:51 AM RESERVE OFFICER): Will initiate ceftin bid x 7 days. Was advised tylenol q6h prn pain. Advised f/u in next week if not improving, sooner if worsening. Chills 03/13/2020 05/15/2020 Assessment & Plan (03/13/2020 9:52 AM RESERVE OFFICER): Will order covid 19 testing for patient and . Will send order to [facility] at her request, will notify of results as available. She was advised to quarantine and treat as presumptive positive at this time given symptoms. She was advised tylenol q6h prn fever/chills, to increase fluids, rest. She was advised to mask and report to ER if worsening. Facial skin lesion 06/17/2019 Assessment & Plan (06/17/2019 5:02 PM RESERVE OFFICER): Unknown etiology. Has appearance of a wheel but is the only one present. Eye appears normal. No s/s infection. No blistering around eye or nose. Will have her sparingly use steroid cream to the area. Reviewed it may bleach the skin so use very sparingly. If persists or changes, may need to re-evaluate or refer to Opthamology. Dyslipidemia 06/11/2019 07/08/2019 Dyspnea on exertion 06/11/2019 05/15/19 21 Encounter for pre-operative examination 06/04/2019 07/08/2019 Assessment & Plan (06/17/2019 5:00 PM RESERVE OFFICER): Reviewed risks of surgery. Medically will clear. Will refer to cardio for Cardiac clearance due to abnormal EKG. EKG, abnormal 06/04/2019 02/10/2020 Assessment & Plan (06/17/2019 5:00 PM RESERVE OFFICER): Refer to Cardio for abnormal EKG for pre-op cardiac clearance. COPD without exacerbation 06/04/2019 Assessment & Plan (06/29/2023 10:30 AM RESERVE OFFICER): The patient smoked 1 pack of cigarettes per day for 31 years and quit smoking in 2011. She has not had recent PFTs. I will order full PFTs with a 6 minute walk test and she will continue to use albuterol MDI 1-2 times per day for now. She will follow up here in 6 weeks. Assessment & Plan (07/04/2022 11:09 PM CDT): This is a significant, separately identifiable problem that was evaluated and managed on the same day as the wellness exam Patient had recent pneumonia. Check x-ray for resolution. She also has been a long-term smoker so probably has COPD. Will refer to pulmonology as she still having difficulty with shortness a breath. She is on albuterol and still requiring it almost every 4-6 hours. Monitor closely and if this increases she is to call as may need to extend the steroids. Refer to pulmonology for further evaluation and possible PFTs. Assessment & Plan (10/26/2021 8:39 PM CDT): Continue to monitor. Patient feels like she is breathing well. Assessment & Plan (07/04/2021 5:25 PM RESERVE OFFICER): History of smoking. Patient has quit. Continue to monitor. Currently managing without any type of intervention. Continue to monitor low-dose CT annually Assessment & Plan (05/15/2020 10:52 AM RESERVE OFFICER): Pt has stopped smoking. She is breathing without difficulty so declines inhalers at this time. Assessment & Plan (02/10/2020 9:35 PM CDT): Continue to monitor. Waiting til after COVID to consider Sleep study. Encouraged to followthru. Will need repeat LDCT in 04/2020 for screening. Assessment & Plan (07/08/2019 9:16 PM CDT): Continue bevespi Assessment & Plan (06/17/2019 4:59 PM RESERVE OFFICER): Continue current regimen. Annual physical exam 05/26/2019 020 Assessment & Plan (05/26/2019 5:12 PM RESERVE OFFICER): Encouraged healthy lifestyle, good nutrition and exercise. Encouraged Calcium and Vitamin D and weight bearing exercise for bone health. Reviewed immunizations Reviewed age appropirate screenings. Other fatigue 05/26/2019 05/14/2020 Assessment & Plan (05/26/2019 5:14 PM RESERVE OFFICER): Probably multifactorial. Check labs and followup to re-evaluate Diabetes mellitus screening 05/26/2019 07/08/2019 Assessment & Plan (05/26/2019 5:12 PM RESERVE OFFICER): Check labs Colon cancer screening 05/26/201905/14 Assessment & Plan (05/26/2019 5:12 PM RESERVE OFFICER): cologuard order placed. Encounter for screening for lung cancer 05/26/2019 05/14/2020 Assessment & Plan (02/10/2020 9:38 PM CDT): Due to repeat LDCT in 04/2020 Assessment & Plan (05/26/2019 5:13 PM RESERVE OFFICER): Discussed with patient Lung Cancer screening options with the patient. Encouraged LowDose CT Patient is between 59yo. quit in the last 15 years. Has a 30+pack years smoking history. Is currently without any signs or symptoms of lung cancer. Is willing to consider curative lung surgery if needed. [id number] Morbid obesity with BMI of 4 0.0-44.9, adult (CMS/HCC) 05/08/2019 06/13/2023 Assessment & Plan (05/15/2020 10:53 AM RESERVE OFFICER): Obesity is unchanged. Discussed the patient's BMI. The BMI is above average. BMI management plan is completed. BMI Follow-up includes: nutrition counseling, exercise counseling and education provided. Assessment & Plan (02/10/2020 9:35 PM CDT): Obesity is unchanged. Discussed the patient's BMI. The BMI is above average. BMI management plan is completed. BMI Follow-up includes: nutrition counseling, exercise counseling and education provided. Assessment & Plan (06/20/2019 9:47 AM RESERVE OFFICER): Obesity is unchanged. Discussed the patient's BMI. The BMI is above average. BMI management plan is completed. BMI Follow-up includes: nutrition counseling, exercise counseling and education provided. Assessment & Plan (06/17/2019 4:59 PM RESERVE OFFICER): Obesity is unchanged. Discussed the patient's BMI. The BMI is above average. BMI management plan is completed. BMI Follow-up includes: nutrition counseling, exercise counseling and education provided. Assessment & Plan (05/26/2019 5:10 PM RESERVE OFFICER): .Obesity is unchanged. Discussed the patient's BMI. The BMI is above average. BMI management plan is completed. BMI Follow-up includes: nutrition counseling, exercise counseling and education provided. Morbid obesity with BMI of 45.0-49.9, adult 05/08/2019 06/03/2024 Assessment & Plan (02/27/2024 12:07 AM RESERVE OFFICER): Discussed the patient's BMI. The BMI is above average. BMI management plan is completed. BMI Follow-up includes: nutrition counseling, exercise counseling and education provided. Discussed weight loss efforts. She is having difficulty walking due to her ankle. She has put on quite a bit of weight over the last few years. She is interested in a G LP to see if this can help with weight loss. Reviewed risks as benefits side effects and proper use. No history of pancreatitis Will prescribe bound 2.5 mg 1 injection weekly. She is to call in after the 3rd injection to see if she is tolerating well and if she is will increase the dose. Assessment & Plan (01/26/2024 10:21 AM CDT): Discussed the patient's BMI. The BMI is above average. BMI management plan is completed. BMI Follow-up includes: nutrition counseling, exercise counseling and education provided. Assessment & Plan (11/10/2023 1:08 PM CDT): Discussed the patient's BMI. The BMI is above average. BMI management plan is completed. BMI Follow-up includes: nutrition counseling, exercise counseling and education provided. Assessment & Plan (11/08/2023 10:58 AM CDT): Discussed the patient's BMI. The BMI is above average. BMI management plan is completed. BMI Follow-up includes: nutrition counseling, exercise counseling and education provided. Assessment & Plan (06/30/2023 10:28 PM RESERVE OFFICER): Discussed the patient's BMI. The BMI is above average. BMI management plan is completed. BMI Follow-up includes: nutrition counseling, exercise counseling and education provided. Assessment & Plan (06/25/2023 11:02 PM RESERVE OFFICER): Discussed the patient's BMI. The BMI is above average. BMI management plan is completed. BMI Follow-up includes: nutrition counseling, exercise counseling and education provided. Assessment & Plan (02/10/2020 9:35 PM CDT): Obesity is unchanged. Discussed the patient's BMI. The BMI is above average. BMI management plan is completed. BMI Follow-up includes: nutrition counseling, exercise counseling and education provided. Assessment & Plan (06/20/2019 9:47 AM RESERVE OFFICER): Obesity is unchanged. Discussed the patient's BMI. The BMI is above average. BMI management plan is completed. BMI Follow-up includes: nutrition counseling, exercise counseling and education provided. Assessment & Plan (06/17/2019 4:59 PM RESERVE OFFICER): Obesity is unchanged. Discussed the patient's BMI. The BMI is above average. BMI management plan is completed. BMI Follow-up includes: nutrition counseling, exercise counseling and education provided. Assessment & Plan (05/26/2019 5:10 PM RESERVE OFFICER): Obesity is unchanged. Discussed the patient's BMI. The BMI is above average. BMI management plan is completed. BMI Follow-up includes: nutrition counseling, exercise counseling and education provided. History of smoking 05/08/2019 Assessment & Plan (05/26/2019 5:14 PM RESERVE OFFICER): Pt has stopped smoking Encounters Date Type Department Care Team Description 01/30/2025 10:30 AM CDT Office Visit [facility] Pulmonology [address] [place] [address] [phone] Charleen Chowdhury NP History of cigarette smoking (Primary Dx); Dyspnea on exertion; BRANDEN (obstructive sleep apnea) from Last 3 Months Immunizations Immunization Administration Dates Next Due Influenza, Quadrivalent, Spl it, Preservative Free, Intramuscular 02/28/2023,01/25/2022,01/28/2021,02/14 Influenza, Unspecified 04/25/2024(Deferred: Miranda ent Refused) PPD TEST 05/18/2023,05/13/2023 Pfizer SARS-CoV-2 Monovalent Vaccination (12+ Yrs) PURPLE 07/17/2020,06/26/2020 Tdap 05/28/2022 Surgical History Surgery Date Site/Laterality Comments BREAST LUMPECTOMY HYSTERECTOMY HERNIA REPAIR ABDOMINOPLASTY BUNIONECTOMY CARDIAC CATHETERIZATION [facility] COSMETIC SURGERY abdominoplasty 2003 Medical History Medical History Date Comments Hyperlipidemia Hypertension Skin disorder Diverticulitis COPD (chronic obstructive pu lmonary disease) Sleep apnea Factor 5 Leiden mutation, heterozygous clotting disorder in granddaughter. Mom, brother, mgm have all had blood clots. GERD (gastroesophageal reflux disease) 2019 Arthritis 2015 Family History Medical History Relation Name Comments Prostate cancer Brother 1 Fibromyalgia Father Jadiel Castro Heart disease Father Jadiel Castro Hypertension Father Jadiel Castro Neuropathy Father Jadiel Castro Cancer Maternal Grandfather Jeremias Phillips Hodgkin's lymphoma Maternal Grandfather Jeremias grimaldo Clotting disorder Maternal Grandmother Florinda Phillips Hypertension Maternal Grandmother Florinda Phillips Arrhythmia Mother Yamini Castro Blood Clot Mother Yamini Castro Clotting disorder Mother Yamini Castro Hypertension Mother Yamini Castro Obesity Mother Yamini Castro Lupus Niece MIEGS Syndrome Sister Relation Name Status Comments Brother 1 Alive Brother 2 Alive Father Jadiel Castro Maternal Grandfather Jeremias Phillips Maternal Grandmother Florinda Phillips Mother Yamini Castro Alive Niece Sister Alive Social History Tobacco Use Types Packs/Day Years Used Date Smoking Tobacco: Former Cigarettes 1 31 1 981 - 07/05/2011 Smokeless Tobacco: Never Tobacco Cessation:Counseling Given: Not Answered Comments:none Alcohol Use Standard Drinks/Week Comments Yes 6 (1 standard drink = 0.6 oz pur e alcohol) red wine [facility] Utilities Answer Date Recorded In the past 12 months has [employer] electric, gas, oil, or water company threatened to shut off services in your home? No 05/30/2023 Social Connection and Isolation Panel Answer Date Recorded In a typical week, how many times do you talk on the phone with family, friends, or neighbors? More than three times a week 05/30/2023 How often do you get togethe r with friends or relatives? More than three times a week 05/30/2023 How often do you attend [facility] or restoration services? 1 to 4 times per year 05/30/2023 Do you belong to any clubs o r organizations such as holiness groups, unions, fraternal or athletic groups, or school groups? No 05/30/2023 How often do you attend meet ings of the clubs or organizations you belong to? Never 05/30/2023 Are you , , di vorced, , never , or living with a partner? 05/30/2023 AUDIT-C Answer Date Recorded Q1: How often do you have a drink containing alcohol? 4 or more times a week 09/06/2024 Q2: How many drinks containi ng alcohol do you have on a typical day when you are drinking? 1 or 2 Q3: How often do you have si x or more drinks on one occasion? Never 09/06/2024 Overall Financial Resource Strain (CARDIA) Answe r Date Recorded How hard is it for you to pa y for the very basics like food, housing, medical care, and heating? Not very hard 05/30/2023 PHQ-2 Answer Date Recorded PHQ-2 Total Score (If total score is 3 or more points, staff should administer the PHQ-9) 0 09/06/2024 Hunger Vital Sign Answer Date Recorded Within the past 12 months, y ou worried that your food would run out before you got the money to buy more. Never true 05/30/19 24 Within the past 12 months, t he food you bought just didn't last and you didn't have money to get more. Never true 05/30/2023 PRAPARE - Transportation Answer Date Re corded In the past 12 months, has l ack of transportation kept you from medical appointments or from getting medications? No 08/2023 In the past 12 months, has l ack of transportation kept you from meetings, work, or from getting things needed for daily living? No 05/30/2023 Housing Stability Vital Sign Answer Kade e Recorded In the last 12 months, was t here a time when you were not able to pay the mortgage or rent on time? No 05/30/2023 In the last 12 months, how many places have you lived? 1 05/30/2023 In the last 12 months, was t here a time when you did not have a steady place to sleep or slept in a retirement (including now)? No 05/30/2023 Personal Safety Answer Date Recorded Have you ever been in or are you currently in a harmful physical or emotional relationship or is someone making you feel afraid or unsafe? 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 Gender Identity Female 06/13/2019 8:38 AM RESERVE OFFICER Sexual Orientation Straight 06/13/2019 8: 38 AM RESERVE OFFICER Occupation Industry Job Start Date Job End Date Retired Not on file Not on file Not on file Obstetrics History Last Filed Vital Signs Vital Sign Reading Time Taken Comments Blood Pressure 147/91 01/30/2025 10:27 AM CDT Pulse 62 01/30/2025 10:27 AM CDT Temperature 36.3 C (97.4 F) 01/30/2025 10:27 AM CDT Respiratory Rate 18 01/30/2025 10:2 7 AM CDT Oxygen Saturation 98% 01/30/2025 10: 27 AM CDT Inhaled Oxygen Concentration - - Weight 105.4 kg (232 lb 6.4 oz) 025 10:27 AM CDT Height 167.6 cm (5' 6) 01/30/2025 10:2 7 AM CDT Body Mass Index 37.51 01/30/2025 10:27 AM CDT Plan of Treatment Health Maintenance Due Date Last Done Comments Hepatitis C Screening 1960 Hepatitis B Screening 1978 Pneumococcal vaccine <65 (1 of 2 - PCV) 1979 Zoster Vaccine (1 of 2) 2010 Breast Cancer Screening-Mammogram 11/02/2024 11/03/2023, 09/28/2022, 07/08/2021, Additional history exists Covid-19 Vaccine (3 - 2024-2 6 season) 2024 07/17/2020, 06/26/2020 Influenza Vaccine (#1) 2024 , 01/25/2022, 01/28/2021, Additional history exists Lung Cancer Screening 01/23/2025 01/23/2024 , 12/18/2021, 09/01/2021, Additional history exists Colon Cancer Screening-DNA Stool 07/27/2025 07/28/19 23, 05/16/2019 Depression Screening 09/06/2025 09/06/2024, 05/24/2024, 02/15/2024, Additional history exists Regular Well Visit/Exam 18-64 09/06/2025, 06/30/2023, 06/28/2022, Additional history exists DTaP/Tdap/Td Vaccine (2 - Td or Tdap) 05/28/2032 05/28/2022 Colon Cancer Screening-FIT Discontinued 07/27/2022, Procedures Procedure Name Priority Date/Time Associated Diagnosis Comments CT CHEST WO CONTRAST F/U LUNG SCREEN PROTOCOL Schedule Routine, Read Routine (OP Routine) 01/23/2024 10:30 AM CDT Pulmonary nodule SCREENING MAMMOGRAM BILATERAL W MICHELE Schedule Routine, Read Routine (OP Routine) 11/03/2023 8:34 AM CDT Breast cancer screening by mammogram STOOL DNA COLOGUARD Routine 07/27/2022 4:20 PM CDT Colon cancer screening from Last 3 Months or Most Recently Relevant to Health Maintenance Results * CT Chest WO Contrast F/U Lung Screen Protocol (01/23/2024 10:30 AM CDT) Anatomical Region Laterality Modality Chest N/A Computed Tomogra phy 01/25/2024 10:4 1 AM CDT Narrative 01/25/2024 10:51 AM CDT EXAM DESCRIPTION: CT CHEST WO CONTRAST F/U LUNG SCREEN PROTOCOL REASON FOR STUDY: Screening CT of the chest in a former smoker with a 31 pack year smoking history. Additional history: None. TECHNIQUE: Low dose CT scan of the chest was performed without intravenous contrast using helical scanning technique. The exam extends from the lung apices through the lung bases. Automatic exposure control was used as a dose optimization technique. NOTE: This study was performed for the specific purposes of lung cancer screening and is not an alternative to diagnostic chest CT. RADIATION DOSE: CT dose index volume (CTDIvol) = 8.0 mGy COMPARISON: 09/06/2023. Follow-up of a right lower lobe pleural-based nodule and resolving left lower lobe pneumonia. FINDINGS: SMOKING RELATED LUNG DISEASE: Moderate emphysema. LUNG NODULES: 1. The previously seen pneumonia in the left lower lobe has resolved. There is mild residual linear scarring. No suspicious associated nodule or mass. 2. There is a 8 x 5 mm solid pulmonary nodule in the right lower lobe abutting the pleura which appears similar to 12/18/2021. It has not enlarged from the recent prior. It may be slightly smaller. CORONARY ARTERY CALCIFICATION: [id number] OTHER: Trace pericardial fluid. Normal heart size. Upper abdomen appears normal. No lymphadenopathy. IMPRESSION: 1. Resolution of the left lower lobe pneumonia. 2. Stable peripheral nodule in the right lower lobe. Benign appearance. Lung-RADS category 2: Benign appearance or behavior. Recommendation: Low dose Screening CT of chest in 12 months. THIS IS AN ELECTRONICALLY VERIFIED FINAL REPORT 01/25/2024 10:51 AM - Electronically signed by Herve ORTEGA T: Report ID: [id number] Reading Location: [place] [address] Procedure Note Herve Diaz MD - 01/25/2024 EXAM DESCRIPTION: CT CHEST WO CONTRAST F/U LUNG SCREEN PROTOCOL REASON FOR STUDY: Screening CT of the chest in a former smoker with a31 pack year smoking history. Additional history: None. TECHNIQUE: Low dose CT scan of the chest was performed without intravenous contrast using helical scanning technique. The exam extends from the lung apices through the lung bases. Automatic exposure control was used as adose optimization technique. NOTE: This study was performed for the specific purposes of lung cancer screening and is not an alternative to diagnostic chest CT. RADIATION DOSE: CT dose index volume (CTDIvol) = 8.0 mGy COMPARISON: 09/06/2023. Follow-up of a right lower lobe pleural-based nodule and resolving left lower lobe pneumonia. FINDINGS: SMOKING RELATED LUNG DISEASE: Moderate emphysema. LUNG NODULES: 1. The previously seen pneumonia in the left lower lobe has resolved.There is mild residual linear scarring. No suspicious associated nodule ormass. 2. There is a 8 x 5 mm solid pulmonary nodule in the right lower lobe abutting the pleura which appears similar to 12/18/2021. It has notenlarged from the recent prior. It may be slightly smaller. CORONARY ARTERY CALCIFICATION: [id number] OTHER: Trace pericardial fluid. Normal heart size. Upper abdomenappears normal. No lymphadenopathy. IMPRESSION: 1. Resolution of the left lower lobe pneumonia. 2. Stable peripheral nodule in the right lower lobe. Benign appearance. Lung-RADS category 2: Benign appearance or behavior. Recommendation: Low dose Screening CT of chest in 12 months. THIS IS AN ELECTRONICALLY VERIFIED FINAL REPORT 01/25/2024 10:51 AM - Electronically signed by Herve ORTEGA T: Report ID: [id number] Reading Location: [place] [address] Charleen Chowdhury NP IMG CT PROCEDURES Final Result * Screening Mammogram Bilateral W Michele (11/03/2023 8:34 AM CDT) Anatomical Region Laterality Modality Breast Bilateral Mammography Chloe SCOTT IMG MAMMO PROCEDURES Final Result * Stool DNA - Cologuard (07/27/2022 4:20 PM CDT) Stool DNA - Cologuard Negative Negative [facility] (CLIA #:[id number]) Comment: NEGATIVE TEST RESULT. A negative Cologuard result indicates a low likelihood that a colorectal cancer (CRC) or advanced adenoma (adenomatous polyps with more advanced pre-malignant features) is present. The chance that a person with a negative Cologuard test has a colorectal cancer is less than 1 in 1500 (negative predictive value >99.9%) or has an advanced adenoma is less than 5.3% (negative predictive value 94.7%). These data are based on a prospective cross-sectional study of 10,000 individuals at average risk for colorectal cancer who were screened with both Cologuard and colonoscopy. (Adeel T. et al, N Engl J Med 2014;370(14):0307-1277) The normal value (reference range) for this assay is negative. COLOGUARD RE-SCREENING RECOMMENDATION: Periodic colorectal cancer screening is an important part of preventive healthcare for asymptomatic individuals at average risk for colorectal cancer. Following a negative Cologuard result, the [employer] and U.S. Multi-Society Task Force screening guidelines recommend a Cologuard re-screening interval of 3 years. References: [employer] Guideline for Colorectal Cancer Screening: https://www.cancer.org/cancer/mxuap-cndixx-eudscx/dmmhyhjhj-dfbtoefch-wdwymzc/ac s-rec ommendations.html.; Jesus Alberto DUQUE, Susan DENT, Katt HowardK, Colorectal Cancer Screening: Recommendations for Physicians and Patients from the U.S. Multi-Society Task Force on Colorectal Cancer Screening , Am J Gastroenterology 2017; 112:5649-4794. TEST DESCRIPTION: Composite algorithmic analysis of stool DNA-biomarkers with hemoglobin immunoassay. Quantitative values of individual biomarkers are not reportable and are not associated with individual biomarker result reference ranges. Cologuard is intended for colorectal cancer screening of adults of either sex, 45 years or older, who are at average-risk for colorectal cancer (CRC). Cologuard has been approved for use by the U.S. FDA. The performance of Cologuard was established in a cross sectional study of average-risk adults aged 50-84. Cologuard performance in patients ages 45 to 49 years was estimated by sub-group analysis of near-age groups. Colonoscopies performed for a positive result may find as the most clinically significant lesion: colorectal cancer [4.0%], advanced adenoma (including sessile serrated polyps greater than or equal to 1cm diameter) [20%] or non- advanced adenoma [31%]; or no colorectal neoplasia [45%]. These estimates are derived from a prospective cross-sectional screening study of 10,000 individuals at average risk for colorectal cancer who were screened with both Cologuard and colonoscopy. (Adeel Trinh. et al, N Engl J Med 2014;370(14):2024-7942.) Cologuard may produce a false negative or false positive result (no colorectal cancer or precancerous polyp present at colonoscopy follow up). A negative Cologuard test result does not guarantee the absence of CRC or advanced adenoma (pre-cancer). The current Cologuard screening interval is every 3 years. ([employer] and U.S. Multi-Society Task Force). Cologuard performance data in a 10,000 patient pivotal study using colonoscopy as the reference method can be accessed at the following location: [email or web address].[email or web address]/results. Additional description of the Cologuard test process, warnings and precautions can be found at [email or web address]. Stool 07/27/2022 4:20 PM CDT 07/29/2022 2:17 PM CDT Chloe SCOTT LAB BODY FLUIDS AND STOOLS ORDERABLES Final Result [facility] (CLIA #:[id number]) [place] [address] from Last 3 Months or Most Recently Relevant to Health Maintenance Insurance [facility] CLAIMS Advance Directives For more information, please contact: [phone] * Full Code (Latest Code Status on File) Date Activated Date Inactivated Comments 05/28/2023 9:34 PM 06/02/2023 4:13 PM Care Teams Specialist Employee Labor Relations Relationship Specialty Start Date End Date Chloe Dinh PA [address] [facility] [address] [place] [address] PCP - General Internal Medicine 03/19/19 Compa Jimenez MD [address] [address] White [employer] Syrup Operator Cardiology 06/14/19
== END 2025-02-04 08:58 | disposition home or self-care (01) ==
LOC: ANHFOHIMG 09:00
PROVIDERS: PCP Physician Assistant; Visit Provider Physician Assistant
DX: Z12.31 Encounter for screening mammogram for malignant neoplasm of breast (principal)
CPT/HCPCS: 77063; 77067